=== PATIENT | male | born 1980 | race Caucasian/White ===

== ENCOUNTER → 2017-07-24 | Outpatient (CLI) | payer BC ==
[~2017-07-24] MED LIST: IBUP-1050 PO; OMEP40CA PO
[2017-07-24 14:35] LABS: ALBUMIN 4.1 gm/dl (3.4-5.0); ALT/SGPT 33 U/L (12-78); AST/SGOT 16 U/L (15-37); BLOOD UREA NITROGEN 12 mg/dl (7-18); CALCIUM 9.3 mg/dl (8.5-10.1); CARBON DIOXIDE 25 mmol/L (21-32); CREATININE 1.01 mg/dl (0.60-1.40); GLUCOSE 84 mg/dl (70-99); SODIUM 139 mmol/L (136-145)
[2017-07-24 14:45] LABS: ALKALINE PHOSPHATASE 86 U/L (45-117); TOTAL PROTEIN 7.6 gm/dl (6.4-8.2)
== END | disposition home or self-care (01) ==
LOC: C.LABBC 11:57
PROVIDERS: ATTEND Family Medicine Adult Medicine
DX: R19.7 Diarrhea, unspecified (principal)

== ENCOUNTER 2017-11-22 08:28 | Inpatient (IN) | payer BC ==
[~2017-11-22] VITALS: Ht 177.8 cm; Wt 93.7 kg
[2017-11-22] VITALS (9 sets, daily range): BP systolic 105–122; BP diastolic 62–71; PULSE 61–86; TEMP 36.1–36.9; O2SAT 92–97; Ht 177.8 cm; Wt 93.7 kg
[~2017-11-22 08:28] MED LIST changes: +CEFAZOLIN 2000MG IV PUSH 15 ML IV SCH; -IBUP-1050 PO; +LACTATED RINGER'S 1000ML 1,000 ML IV SCH; -OMEP40CA PO
[2017-11-22] MEDS ORDERED: LIDOCAINE HCL 2% 2 ML VIAL (20MG/ML) ONE (09:40)
[2017-11-22] MEDS ORDERED: GLYCOPYRROLATE INJ 0.2 MG/ML VIAL ONE ×2 (09:40→11:43)
[2017-11-22] MEDS ORDERED: ONDANSETRON INJ 2 MG/ML 2 ML VIAL ONE (09:40)
[2017-11-22] MEDS ORDERED: FENTANYL CITRATE INJ 50 MCG/1 ML 2 ML VIAL ONE ×3 (09:40→11:22)
[2017-11-22] MEDS ORDERED: NEOSTIGMINE METHYLSULFATE 5 MG/5 ML SYR ONE (09:40)
[2017-11-22] MEDS ORDERED: DEXAMETHASONE SOD INJ 4 MG/ML VIAL ONE (09:40)
[2017-11-22] MEDS ORDERED: PROPOFOL IV EMULSION 10 MG/ML 20 ML VIAL ONE ×3 (09:40→11:37)
[2017-11-22] MEDS ORDERED: MIDAZOLAM HCL 1 MG/ML 2ML VIAL ONE (09:40)
--- NOTE | 2017-11-22 09:50 | History & Physical Bridge Note ---
H&P Re-Evaluation Bridge Note: I have examined the patient, reviewed the History & Physical and in the interval since the performance of the History & Physical I have noted the following changes of clinical significance: No changes noted
[2017-11-22] MEDS ORDERED: HYDR-5688 PO (10:17)
--- NOTE | 2017-11-22 10:28 | Discharge Instructions ---
Discharge Instructions Date of Service Nov 22, 2017. Admission Reason for Admission: Hiatal Hernia, Chronic Gerd, Chronic Cholecystiti Discharge Discharge Diagnosis / Problem: laparoscopic cholecystectomy, hernia repair Discharge Goals Goal(s): Decrease discomfort Activity Recommendations Activity Limitations: as noted below Lifting Limitations: no more than 10 pounds Shower/Bathe: no limitations Driving or Machine Use: resume 3 days after discharge . Instructions / Follow-Up Instructions / Follow-Up Dr. Null in 2 weeks as planned, call [phone] if you have any questions Current Hospital Diet Patient's current hospital diet: Discharge Diet Recommended Diet: Full Liquid Diet Pending Studies Studies pending at discharge: no Medical Emergencies . Who to Call and When: Medical Emergencies: If at any time you feel your situation is an emergency, please call 911 immediately. . Non-Emergent Contact Non-Emergency issues call your: Surgeon Call Non-Emergent contact if: you have a fever, temperature is above 101.5, your pain is not controlled, wound has increased redness, wound has increased pain, you have any medication questions . "Provider Documentation" section prepared by Mahendra Umana. .
[2017-11-22] MEDS ORDERED: ATROPINE SULFATE 0.1 MG/ML 5ML SYR IV PRN (10:30)
[2017-11-22] MEDS ORDERED: ONDANSETRON INJ 2 MG/ML 2 ML VIAL IV PRN (10:30)
[2017-11-22] MEDS ORDERED: EpHEDrine SULFATE INJ 50 MG/ML AMP IV PRN (10:30)
[2017-11-22] MEDS ORDERED: FENTANYL CITRATE INJ 50 MCG/1 ML 2 ML VIAL IV PRN (10:30)
[2017-11-22] MEDS ORDERED: LABETALOL HCL IV 5 MG/ML 20ML IV PRN (10:30)
[2017-11-22] MEDS ORDERED: MEPERIDINE HCL 25 MG/ML CARP IV PRN (10:30)
[2017-11-22] MEDS ORDERED: HYDROmorphone INJ 1 MG/ML SYR IV PRN (10:30)
[2017-11-22] MEDS ORDERED: BUPIVACAINE/EPINEPHRINE 0.5% MPF 1:200,000 30 ML VIAL ONE (10:39)
[2017-11-22] MEDS ORDERED: ROCURONIUM BROMIDE 10 MG/ML 5 ML VIAL ONE ×2 (11:07→11:43)
[2017-11-22] MEDS ORDERED: HYDROmorphone INJ 2 MG/ML SYR/VIAL ONE (11:32)
[2017-11-22] MEDS ORDERED: PHENYLEPHRINE HCL INJ 10 MG/ML VIAL ONE (11:45)
--- NOTE | 2017-11-22 12:01 | [facility] Post Operative Brief Note ---
Immediate Operative Summary Operative Date Nov 22, 2017. Pre-Operative Diagnosis Chronic Cholecystitis, Hiatal Hernia Post-Operative Diagnosis Chronic Cholecystitis, Hiatal Hernia Procedure(s) Performed Laparoscopic Cholecystectomy, Laparoscopic Hiatal Hernia Repair with Gastropexy Surgeon Dr. Null Train Conductor Surgeon(s) NAEL Hobson/NAEL Leyva Estimated Blood Loss 15 ml Findings Consistent with Post-Op Diagnosis Specimens A. Gallbladder Anesthesia Type General Complication(s) none
[2017-11-22] MEDS ORDERED: ONDA4TAB65 PO (12:11)
[2017-11-22] MEDS ORDERED: MEPERIDINE HCL 50 MG/ML CARP ONE (12:14)
[2017-11-22] MEDS ORDERED: MoRPHine SULFATE 2 MG/ML CARP IV PRN ×2 (12:15)
[2017-11-22] MEDS ORDERED: HYDROCODONE/ACETAMIN 5/325MG TAB PO PRN (12:15)
--- NOTE | 2017-11-22 12:31 | [facility] Operative Report ---
Operative Report Operative Date Nov 22, 2017. Pre-Operative Diagnosis Chronic Cholecystitis, Hiatal Hernia Post-Operative Diagnosis Chronic Cholecystitis, Hiatal Hernia Procedure(s) Performed Laparoscopic Cholecystectomy, Laparoscopic Hiatal Hernia Repair with Gastropexy Surgeon Dr. Null Caustic Plant Worker Surgeon(s) NAEL Hobson/NAEL Leyva Estimated Blood Loss 15 ml Specimens A. Gallbladder Anesthesia Type General Complication(s) none Description of Procedure After informed consent was obtained the patient was brought to the operating room and placed in supine position. After successful intubation the abdomen was shaved and sterilely prepped and draped. Anesthesia placed an orogastric tube prior to initiating the procedure. I began by placing a supraumbilical incision with an 11 blade scalpel and carried this down through the soft tissue using electrocautery. The anterior rectus fascia was opened using electrocautery and 2 #0 Vicryl stay sutures were placed. Peritoneum was elevated with hemostats and incised under direct vision using a Metzenbaum scissor. A finger sweep was performed to take down any underlying adhesions and a 12 mm Jiang trocar was placed. The abdomen was insufflated that 20 mmHg. The laparoscope was inserted and the abdomen was examined in 360 degrees...a right upper quadrant 5 mm trocar was placed a right mid abdominal 5 mm trocar was placed a subxiphoid 5 mm trocar was placed a left upper quadrant 12 mm trocar was placed and eventually a left mid abdominal 5 mm trocar was placed all under direct vision. The patient was placed in reverse Trendelenburg position. I began with the cholecystectomy. We grasped the gallbladder and elevated superiorly and laterally. I used a [place] dissector to take down adhesions around the neck of the gallbladder. The cystic duct was readily identified. It was skeletonized. It was clipped twice proximally and once distally using a clip sales representative printing supplies and a scissor used to transect the duct. In similar fashion the cystic artery was skeletonized clipped and divided. The gallbladder was removed from the gallbladder fossa intact. It was placed into an Endo Catch bag and removed from the camera port site. Irrigation of the right upper quadrant was performed. There was adequate hemostasis and no evidence of a bile leak My attention then turned the hiatal hernia. I put on over gloves and attached the liver retractor to the side of the bed. We placed a [place] retractor through the right midabdominal trocar and elevated the left lobe of the liver and secured it to the fields. We were able to readily identify a moderate probably 5 cm hiatal hernia with some proximal stomach incarceration. We were able to grab the stomach and easily reduce it. I had anesthesia exchange the oral gastric tube for a 51 [place] bougie. I began by taking down the gastrohepatic ligament with the sono excision. I continued to come up the right crew and take down the hernia sac anteriorly. I then went over to the left crew and also took down hernia sac following the left crew up and around anteriorly to I had met what I done previously. Eventually I was able to completely take down the hernia sac in 360. Identification of the esophagus was obvious with the bougie in place. I was able to elevate the esophagus bougie and stomach and locate the left and right crew the diaphragm posteriorly. I used an Endo Stitch device with O Surgidac to primarily close the defect posteriorly. Once this was done I then closed the remainder of the defect anteriorly again using O Surgidac in simple interrupted fashion. It was relatively tension-free. I did perform a gastropexy by pexing the lesser curvature of the stomach to the right crew the diaphragm and the fundus to the left crew the diaphragm again using O Surgidac. We then removed the bougie. There was adequate hemostasis. No other gross abnormalities were identified. I irrigated the upper abdomen a final time. We removed all the trochars and desufflated the abdomen. The fascia of the camera port was closed using 0 Vicryl in a [id number] fashion. All the wounds were irrigated and closed using 4-0 Monocryl. Marcaine was injected around them for postoperative analgesia and skin glue used as a dressing. Patient was awaken extubated and transferred recovery in stable condition. My physician assistant baseball coach was present for the entire case. He helped prep the patient. He helped with running the camera as well as retraction throughout my dissection. Helped with wound closure and dressing placement at the end of the case. I attest to the content of the Intraoperative Record and any orders documented therein. Any exceptions are noted below.
--- NOTE | 2017-11-22 13:34 | Anesthesiology Progress Note ---
Anesthesia Post Op Note Date & Time Nov 22, 2017 at 13:34 Vital Signs Pain Intensity: 1 Vital Signs Past 12 Hours Date Time Temp Pulse Resp B/P (MAP) Pulse Ox O2 Delivery O2 Flow Rate FiO2 11/22/17 13:05 55 14 116/60 95 Nasal Cannula 2 11/22/17 12:50 36.8 64 12 117/69 98 Nasal Cannula 2 11/22/17 12:40 80 17 117/78 98 Nasal Cannula 3 11/22/17 12:30 80 16 122/67 97 Oxymask 10 11/22/17 12:20 99 16 133/76 96 Oxymask 10 11/22/17 12:13 36.6 115 16 136/85 95 Oxymask 10 11/22/17 08:42 36.1 67 16 113/68 (83) 96 Room Air Notes Mental Status: alert / awake / arousable, participated in evaluation Pt Amnestic to Procedure: Yes Nausea / Vomiting: adequately controlled Pain: adequately controlled Airway Patency, RR, SpO2: stable & adequate BP & HR: stable & adequate Hydration State: stable & adequate Anesthetic Complications: no major complications apparent
[2017-11-22] MEDS: LACTATED RINGER'S 1000ML 1,000 ML IV SCH ×2 (13:55→22:51)
[2017-11-22] MEDS ORDERED: IV FLUIDS COMPLETED PRN (15:30)
[2017-11-23 04:32] VITALS: BP 103/65; PULSE 76; TEMP 36.9; O2SAT 93
[2017-11-23 07:46] VITALS: BP 108/66; PULSE 66; TEMP 36.5; O2SAT 94
[2017-11-23 07:56] VITALS: O2SAT 94
[2017-11-23] MEDS: LACTATED RINGER'S 1000ML 1,000 ML IV SCH (09:08)
--- NOTE | 2017-11-23 10:05 | Surgery Progress Note ---
Surgery Progress Note Date of Service Nov 23, 2017. Subjective Post OP Day: 1 + feeling well, + pain controlled, + diet (liquids), No nausea Objective Vital Signs: Date Time Temp Pulse Resp B/P (MAP) Pulse Ox O2 Delivery O2 Flow Rate FiO2 11/23/17 07:56 94 Room Air 11/23/17 07:46 36.5 66 16 108/66 (80) 94 Room Air 11/23/17 07:17 Room Air 11/23/17 04:32 36.9 76 16 103/65 (78) 93 Room Air 11/22/17 23:23 Room Air 11/22/17 23:02 36.9 86 16 105/62 (76) 92 Room Air 11/22/17 20:07 36.3 75 17 108/69 (82) 93 Room Air 11/22/17 16:18 36.4 77 17 113/66 (82) 95 Nasal Cannula 1.0 11/22/17 15:35 36.5 84 17 114/66 (82) 95 Nasal Cannula 1.0 11/22/17 15:05 93 Room Air 11/22/17 14:15 73 16 121/68 (85) 93 11/22/17 13:45 36.5 61 16 122/71 (88) 95 Nasal Cannula 1.0 11/22/17 13:15 36.8 65 16 112/65 (81) 97 Nasal Cannula 2.0 11/22/17 13:15 Nasal Cannula 2.0 11/22/17 13:15 Nasal Cannula 2.0 11/22/17 13:05 55 14 116/60 95 Nasal Cannula 2 11/22/17 12:50 36.8 64 12 117/69 98 Nasal Cannula 2 11/22/17 12:40 80 17 117/78 98 Nasal Cannula 3 11/22/17 12:30 80 16 122/67 97 Oxymask 10 11/22/17 12:20 99 16 133/76 96 Oxymask 10 11/22/17 12:13 36.6 115 16 136/85 95 Oxymask 10 Abdomen: non distended, soft Assessment & Plan Laparoscopic Cholecystectomy, Laparoscopic Hiatal Hernia Repair with Gastropexy doing well post op keep on full liquids seen with Dr. Null ok for discharge
[2017-11-23 10:10] VITALS: BP 108/66; PULSE 66; TEMP 36.5; O2SAT 94
--- NOTE | 2017-11-23 15:23 | Discharge Summary ---
Discharge Summary Date of Service Nov 23, 2017. Admission Date/Reason Nov 22, 2017 at 12:10 Hiatal Hernia, Chronic Gerd, Chronic Cholecystiti. Discharge Date/Disposition Nov 23, 2017 Home Diagnosis Principal Diagnosis: Chronic cholecystitis Hiatal Hernia Procedure(s) Performed Laparoscopic Cholecystectomy, Laparoscopic Hiatal Hernia Repair with Gastropexy Medication Reconciliation New Medications: Hydrocodone/Acetaminophen 5MG/325MG ([place] 5MG/325MG) Tab 1-2 TABLET PO Q4H PRN for Pain, #24 TAB Ondansetron Hcl (Zofran) 4 Mg Tab 4 MG PO PRN, #10 TAB Referrals Follow up Referrals: Surgery Referral - Within 1-2 Weeks with Ankit uNll D.O. Admission Physical Exam As per Admitting History & Physical. Hospital Course 37 y/o male with chronic cholecystitis and hiatal hernia taken to the operating room laparoscopic cholecystectomy and laparoscopic hiatal hernia repair with gastropexy. He was transferred to the surgical floor for overnight observation. In the morning he was tolerating full liquid diet and oral analgesics. His abdomen was benign. He was stable for discharge. Discharge Instructions Please refer to the electronic Patient Visit Report (Discharge Instructions) for additional information.
== END 2017-11-23 12:10 | disposition home or self-care (01) | DRG 328 ==
LOC: C.ACU 08:28 → C.MSW 12:10 → ENRESERV 12:39
PROVIDERS: ADMIT Surgery; ATTEND Surgery
PROC: 0DS64ZZ Reposition Stomach, Percutaneous Endoscopic Approach (ICD-10-PCS; principal; 2017-11-22 10:00)
PROC: 0FT44ZZ Resection of Gallbladder, Percutaneous Endoscopic Approach (ICD-10-PCS; principal; 2017-11-22 10:00)
PROC: 0BQT4ZZ Repair Diaphragm, Percutaneous Endoscopic Approach (ICD-10-PCS; principal; 2017-11-22 10:00)
DX: K44.9 Diaphragmatic hernia without obstruction or gangrene (principal); K81.1 Chronic cholecystitis; K21.9 Gastro-esophageal reflux disease without esophagitis

== ENCOUNTER 2018-09-20 06:53 | Observation (INO) ==
[2018-09-20] MEDS ORDERED: SODIUM CHLORIDE 0.9% 1000ML 1,000 ML IV ONE (07:27)
[2018-09-20 07:35] LABS: Basophils # (auto) 0.02 K/uL (0-0.2); Basophils % (auto) 0.4 %; Eosinophils # (auto) 0.13 K/uL (0-0.5); Eosinophils % (auto) 2.6 %; Hemoglobin 15.3 g/dL (14.0-18.0); Immature Granulocytes # (auto) 0.01 K/uL (0.00-0.02); Immature Granulocytes % (auto) 0.2 %; Lymphocytes # (auto) 1.32 K/uL (1.2-3.4); Lymphocytes % (auto) 26.2 %; Mean Corpuscular Hgb Conc 35.6 g/dL (32-36); Mean Corpuscular Volume 84.5 fL (80-100); Mean Platelet Volume 10.3 fL (7.4-10.4); Monocytes # (auto) 0.37 K/uL (0.11-0.59); Monocytes % (auto) 7.4 %; Neutrophils # (auto) 3.18 K/uL (1.4-6.5); Neutrophils % (auto) 63.2 %; Platelet Count 170 K/uL (130-400); RDW Coefficient of Variation 11.9 % (11.5-14.5); RDW Standard Deviation 36.5 fL (36.4-46.3); Red Blood Count 5.09 M/uL (4.7-6.1); White Blood Count 5.03 K/uL (4.8-10.8)
[2018-09-20 07:51] LABS: Albumin Level 4.1 gm/dl (3.4-5.0); BUN Creatinine Ratio 18.1 (10-20); Calcium 9.6 mg/dl (8.5-10.1); Creatinine Clr Calc Pharmacy 107.9 ml/min; Est GFR (African American) 100.7; Est GFR (Non-African American) 86.9; Potassium 3.8 mmol/L (3.5-5.1)
[2018-09-20 07:54] LABS: Albumin Globulin Ratio 1.2 (0.9-2); Bilirubin,Total 0.7 mg/dl (0.2-1); Globulin 3.3 gm/dl (2.5-4.0); Total Protein 7.4 gm/dl (6.4-8.2)
--- NOTE | 2018-09-20 08:19 | CT Scan Report ---
ABDOMEN AND PELVIS CT WITHOUT CONTRAST CT DOSE: 610.59 mGy.cm HISTORY: Acute right lower quadrant abdominal pain RLQ TECHNIQUE: Multiaxial CT images of the abdomen and pelvis were performed without contrast. A dose lo wering technique was utilized adhering to the principles of ALARA. COMPARISON STUDY: Chest CT 05/06/2018, right upper quadrant abdominal ultrasound 08/21/2015. FINDINGS: Mild dependent subsegmental bibasilar atelectasis. No pneumatosis or pneumoperitoneum. Imaged inferio r cardiac chambers appear unremarkable. Prior cholecystectomy. Spleen, liver, pancreas and adrenal gl ands appear unremarkable. Kidneys, ureters and urinary bladder are within normal limits. Prostate rebekah ears unremarkable. Aorta and IVC are within normal limits. There is no adenopathy. Small hiatal hernia. No bowel obstruction. Fluid-filled appendix is mildly dilated measuring up to 9 mm. Mild periappendiceal inflammatory stranding without evidence of rupture or organized fluid collec tion. Reactive lymph nodes of the right lower quadrant mesentery measure up to 6 mm. Soft tissues are unremarkable. The bones appear to be intact. Mild disc space narrowing with small posterior disc ost eophyte complex formation at L5-S1. IMPRESSION: 1. Findings compatible with acute uncomplicated appendicitis. No evidence of perforation or drainable fluid collection. 2. Mildly prominent reactive lymph nodes of the right lower quadrant mesentery. 3. No bowel obstruction. 4. Cholecystectomy. 5. Small hiatal hernia. Electronically signed by: Yash Dior M.D. 09/20/2018 8:18 AM
[2018-09-20] MEDS ORDERED: cefOXitin 2,000 MG/60 ML BAG IV STA (08:39)
--- NOTE | 2018-09-20 09:25 | History & Physical Report ---
Date of Service September 20, 2018 Assessment & Plan (1) Acute appendicitis: Will plan for laparoscopic appendectomy later this morning by Dr. García. Mefoxin was given in the ED. History of Present Illness Primary Care Provider: Griselda Peter MD 37 y/o male with RLQ pain began yesterday and increasing overnight. Went to work this morning, left to come to the ED. No N/V, no fevers or chills. Had lap romel, HH repair about a year ago. Allergies Allergy/AdvReac Type Severity Reaction Status Date / Time No Known Allergies Allergy Unverified 09/20/18 07:17 Home Medications Home Medications Medication Instructions Recorded Confirmed Type ibuprofen 600 mg PO QID PRN 09/20/18 09/20/18 History Past Med/Surg History Surgical History History of inguinal hernia repair History of laparoscopic cholecystectomy History of repair of hiatal hernia History of vasectomy Family History Grandfather (Paternal) Alcoholic cirrhosis Grandfather (Maternal) Murmur Diabetes Father Prostate cancer Grandmother (Maternal) Alzheimer disease Sister Systemic lupus erythematosus Social History Preferred Language: [place] Communication Ability: Effective Community Associate Required: No Beliefs That Will Affect Care: None marital status: Current Living Situation: Spouse current occupational status: employed current occupation: [employer] Other Information That Helps Us Care for You: No Feels Safe at Home: Yes Safety Concerns: Feels Safe At This Time Smoking Status: Never smoker Do You Dip or Chew Tobacco: No Second Hand Exposure: No Tobacco Cessation Education Requested by Patient: No Hx Alcohol Use: Yes Alcohol type: beer Hx Substance Use: No Review of Systems Constitutional: no fever, no chills and no anorexia Gastrointestinal: + abdominal pain; no nausea and no vomiting Physical Exam Constitutional: WD/WN, vitals as above Respiratory: normal respiratory effort, lungs clear to auscultation Cardiovascular: RRR, no murmur, no edema Gastrointestinal (Abdomen): Inspection/Auscultation: abdomen not distended Percussion/Palpation: + abdomen tender (RLQ), + guarding and abdomen soft Skin: no rashes, warm and dry Results & Data Vital Signs (Past 12 Hours) Vital Signs Temp Pulse Pulse Resp BP BP Pulse Ox 09/20/18 08:09 65 18 106/70 99 09/20/18 07:42 95 09/20/18 06:59 36.5 C 63 18 117/77 99 Diagnostic Findings ABDOMEN AND PELVIS CT WITHOUT CONTRAST CT DOSE: 610.59 mGy.cm HISTORY: Acute right lower quadrant abdominal pain RLQ TECHNIQUE: Multiaxial CT images of the abdomen and pelvis were performed without contrast. A dose lowering technique was utilized adhering to the principles of ALARA. COMPARISON STUDY: Chest CT 05/06/2018, right upper quadrant abdominal ultrasound 08/21/2015. FINDINGS: Mild dependent subsegmental bibasilar atelectasis. No pneumatosis or pneumoperitoneum. Imaged inferior cardiac chambers appear unremarkable. Prior cholecystectomy. Spleen, liver, pancreas and adrenal glands appear unremarkable. Kidneys, ureters and urinary bladder are within normal limits. Prostate appears unremarkable. Aorta and IVC are within normal limits. There is no adenopathy. Small hiatal hernia. No bowel obstruction. Fluid-filled appendix is mildly dilated measuring up to 9 mm. Mild periappendiceal inflammatory stranding without evidence of rupture or organized fluid collection. Reactive lymph nodes of the right lower quadrant mesentery measure up to 6 mm. Soft tissues are unremarkable. The bones appear to be intact. Mild disc space narrowing with small posterior disc osteophyte complex formation at L5-S1. IMPRESSION: 1. Findings compatible with acute uncomplicated appendicitis. No evidence of perforation or drainable fluid collection. 2. Mildly prominent reactive lymph nodes of the right lower quadrant mesentery. 3. No bowel obstruction. 4. Cholecystectomy. 5. Small hiatal hernia. Electronically signed by: Yash Dior M.D. 09/20/2018 8:18 AM Supervising Physician Co-Signing Physician Notes Pnt seen and examined, labs and imaging reviewed, agree with above. 37 y/[address] male with CT proven acute appendicitis, plan for laparoscopic appendectomy. Risks discussed to include but not limited to bleeding, infection, abscess, damage to surrounding structures, normal appendix, need for future or more extensive surgery, open surgery, and risks of anesthesia. Abx pre op. (1) Acute appendicitis Acute appendicitis type: with localized peritonitis Appendicitis abscess presence: without abscess Appendicitis gangrene presence: without gangrene Appendicitis perforation presence: without perforation Qualified Code(s): K35.30 - Acute appendicitis with localized peritonitis, without perforation or gangrene
[2018-09-20] MEDS ORDERED: LACTATED RINGER'S 1,000 ML IV SCH ×2 (09:30→16:54)
[2018-09-20 10:40] LABS: Appearance Urine Clear (Clear); Bilirubin Urine Negative (Negative); Blood Urine Negative (Negative); Color Urine Yellow; Glucose Urine UA Negative (Negative); Ketones Urine Negative (Negative); Leukocyte Esterase Urine Negative (Negative); Nitrite Urine Negative (Negative); Protein Urine Negative (Negative); Specific Gravity Urine 1.013 (1.000-1.030); Urobilinogen Urine Negative (Negative); pH Urine 7.5 (4.5-7.5)
--- NOTE | 2018-09-20 12:40 | Anesthesiology Consultation ---
Date of Service September 20, 2018 Assessment & Plan (1) Encounter for pre-operative examination: Chart Review Chart Review: Acceptable Risk for Surgery and Patient NOT seen in Pre Admission Testing Consults Requested none ASA ASA2 Proposed Anesthesia Anesthesia Type: General Risk / Benefits Reviewed With: PT / POA / Parent / Guardian, Accepts Plan and In formed Consent Obtained History Surgery Operation Date: 09/20/18 09:50 Proposed Procedures p Laparoscopic Appendectomy - Dariusz García, , FACS Height/Weight Height: 5 ft 9 in Weight: 97.6 kg Allergies Allergy/AdvReac Type Severity Reaction Status Date / Time No Known Allergies Allergy Unverified 09/20/18 07:17 Medications Home Medications Medication Instructions Recorded Confirmed Last Taken ibuprofen 600 mg PO QID PRN 09/20/18 09/20/18 09/20/18 05:30 Active Medications Generic Name Dose Route Start Last Admin Trade Name Freq PRN Reason Stop Dose Admin Lactated Ringer's 1,000 mls @ 125 mls/hr 09/20/18 09:30 09/20/18 10:07 Lr IV 10/20/18 09:29 125 mls/hr .Q8H ELIZABETH Administration NPO Date Last Intake of Fluids: 09/20/18 Time Last Intake of Fluids: 05:30 Date Last Intake of Solids: 09/19/18 Time Last Intake of Solids: 18:30 Exercise / Class Metabolic Activity II 4-5 Yardwork/Stairs/Walk up hill Negative for chest pain or shortness of breath. Past Family History Family History Grandfather (Paternal) Alcoholic cirrhosis Grandfather (Maternal) Murmur Diabetes Father Prostate cancer Grandmother (Maternal) Alzheimer disease Sister Systemic lupus erythematosus Past Surgical History Surgical History History of inguinal hernia repair History of laparoscopic cholecystectomy History of repair of hiatal hernia History of vasectomy Past Anesthesia History No Hx of Anesthesia Complications History of PONV No Hx of PONV and Hx of Motion Sickness Social History Smoking Status: Never smoker Do You Dip or Chew Tobacco: No Hx Alcohol Use: Yes Alcohol type: beer alcohol intake frequency: a few times a month Alcohol Intake Frequency Comment: 3 drinks a month Hx Substance Use: No substance use type: does not use Review of Systems Patient denies active symptoms of GERD. pt reports that he dislocated his cricoid cartilage and bruised his vocal cords last week Physical Exam Vital Signs Last Vital Signs Temp 36.5 C 09/20/18 06:59 Pulse 60 09/20/18 12:00 Resp 14 09/20/18 12:00 BP 108/64 09/20/18 12:00 Pulse Ox 97 09/20/18 12:00 Constitutional + obese ENMT Mouth: no TMJ abnormality and oral opening not small Thyromental Distance: > or= 3.5 Finger Breadths Neck normal visual inspection, + thick neck and + facial hair; neck extension not limited Respiratory normal respiratory effort Auscultation: lungs clear to auscultation bilaterally Cardiovascular Rate/Rhythm: regular rate and regular rhythm Heart Sounds: no murmur Neurologic moves all extremities Motor/Sensory: no sensory deficit Psychiatric Orientation: alert and oriented x 3 Testing Laboratory Results 09/20/18 07:18 09/20/18 07:18 09/20/18 10:30 Urine Color Yellow Urine Appearance Clear Urine pH 7.5 Ur Specific [place] 1.013 Urine Protein Negative Urine Glucose (UA) Negative Urine Ketones Negative Urine Nitrite Negative Ur Leukocyte Esterase Negative
[2018-09-20] MEDS ORDERED: fentaNYL citrate 100 MCG/2 ML VIAL IV PRN (13:02)
[2018-09-20] MEDS ORDERED: ATROPINE SULFATE 0.1 MG/ML 10ML SYR IV PRN (13:02)
[2018-09-20] MEDS ORDERED: HYDROmorphone INJ 1 MG/ML SYRINGE IV PRN (13:02)
[2018-09-20] MEDS ORDERED: ePHEDrine sulfate 50 MG/ML AMP IV PRN (13:02)
[2018-09-20] MEDS ORDERED: ONDANSETRON INJ 2 MG/ML 2 ML VIAL IV PRN ×2 (13:02→16:54)
[2018-09-20] MEDS ORDERED: PROMETHAZINE HCL 12.5 MG in SODIUM CHLORIDE 0.9% 50 ML IV PRN (13:02)
[2018-09-20] MEDS ORDERED: BUPIVACAINE 0.5 % 5 MG/1 ML MPF 30ML VIAL ONE (13:16)
[2018-09-20] MEDS ORDERED: DEXAMETHASONE SOD INJ 4 MG/ML VIAL ONE (13:22)
[2018-09-20] MEDS ORDERED: PROPOFOL IV EMULSION 10 MG/ML 20 ML VIAL IV ONE (13:22)
[2018-09-20] MEDS ORDERED: LIDOCAINE HCL 2% 2 ML VIAL/AMP(20MG/ML) INFIL ONE (13:22)
[2018-09-20] MEDS ORDERED: ROCURONIUM BROMIDE 10 MG/ML 5 ML VIAL ONE (13:22)
[2018-09-20] MEDS ORDERED: MIDAZOLAM HCL 1 MG/ML 2ML VIAL ONE (13:22)
[2018-09-20] MEDS ORDERED: ONDANSETRON INJ 2 MG/ML 2 ML VIAL ONE (13:22)
[2018-09-20] MEDS ORDERED: HYDROmorphone INJ 2 MG/ML SYR/VIAL ONE (13:23)
[2018-09-20] MEDS ORDERED: GLYCOPYRROLATE 0.2 MG/ML VIAL ONE (14:32)
[2018-09-20] MEDS ORDERED: NEOSTIGMINE METHYLSULFATE 5 MG/5 ML SYR ONE (14:32)
--- NOTE | 2018-09-20 15:12 | Operative Report ---
Post Operative Report Pre & Post Diagnosis Operation Date: 09/20/18 09:50 Pre-Op Diagnosis: Acute Appendicitis Post-Op Diagnosis: Acute Appendicitis, intra-abdominal adhesions, Meckel's diverticulum Procedure Operation Date: 09/20/18 09:50 Actual Procedures p Laparoscopic Appendectomy, laparoscopic lysis of adhesions, laparoscopic Meckel's diverticulectomy- Dariusz García DO, HAYDEE Surgeon Dariusz García DO, HAYDEE Radio Frequency Engineer Mahendra Umana Estimated Blood Loss 4 Findings Consistent with Post-Op Diagnosis Some moderate adhesions from prior surgery, also some adhesions in the right lower quadrant with some clips evident, possibly consistent with a prior hernia repair. Some omental adhesions taken down to expose the cecum. Appendix not perforated and mildly inflamed, uncomplicated appendectomy performed. Small bowel run from terminal ileum proximally, mildly inflamed Meckel's diverticulum identified with narrow mouth. Stapled Meckel's diverticulectomy performed. Specimens Appendix Meckel's diverticulum Anesthesia Type General Complications none Disposition Accompanied Patient To Recovery: No Disposition: Recovery Room Indications 37-year-old male with 24 hours of abdominal pain and CT proven acute appendicitis without evidence of perforation, plan for laparoscopic appendectomy. The risks of the procedure were discussed, all questions were answered, and the patient agreed to proceed with surgery as planned. Description of Procedure The patient was properly identified, consented, and taken to the operating room where he was placed in the supine position. General endotracheal anesthesia was induced. SCDs and a safety belt were placed. Preoperative antibiotics were administered. A Scott catheter was not placed. The patient's abdomen was prepped and draped in the standard sterile fashion. Surgical timeout was performed and all parties were in agreement that this was the correct patient and procedure to be performed and we continued as planned. A curvilinear infraumbilical incision was made with electrocautery and deepened down to the fascia with blunt dissection. The base of the umbilicus was grasped with a Usman and elevated towards the ceiling. An incision was made in the midline fascia with a knife and entry into the peritoneum was confirmed. Stay suture of 0 Vicryl was placed and a Jiang trocar was inserted. The abdomen was insufflated with carbon dioxide which the patient tolerated without incident. The laparoscope was inserted and no damage from initial trocar placement was noted, no gross abnormalities were noted within the 4 quadrants the abdomen. 5 mm ports were then placed in the left lower quadrant with care not to damage the epigastric vessels, and in the suprapubic midline with care not to damage the bladder. The patient was placed in Trendelenburg position and rotated towards the left. There was some omental adhesions to the anterior abdominal wall in the right lower quadrant. There is a few clips in this area, which may represent a prior inguinal hernia repair though this is uncertain. These were taken down with blunt dissection and with the harmonic scalpel. The small bowel was swept away from the right lower quadrant. The cecum was grasped with an atraumatic grasper exposing the appendix. The appendix was mildly inflamed and there was no evidence of perforation. There was no fluid in the pelvis. A window was created between the base of the appendix and the mesoappendix. A harris loaded endoscopic stapler was then used to divide the appendix at its base. The harmonic scalpel was then used to divide the mesoappendix. Hemostasis was good. The appendix was placed in an Endo Catch bag and removed through the umbilical port site. The right lower quadrant and pelvis was irrigated and hemostasis was found to be good. I then explored the bowel starting at the terminal ileum and working proximally. Approximately 2 to 3 feet from the terminal ileum there were a few adhesions and it was noted that there was a fairly narrow mouth Meckel's diverticulum without evidence of significant inflammation or perforation. An additional 5 mm port was placed in the right upper quadrant through an old incision to assist with retraction. Filmy adhesions were taken down with scissors. There was an area where the diverticulum was densely adherent to a piece of small bowel, and this was divided with a 30 mm harris loaded endoscopic stapler. The Meckel's diverticulum was then resected at its base using a harris loaded endoscopic stapler with care not to narrow the bowel significantly. The Meckel's diverticulum was placed in an Endo Catch bag and removed through the umbilical port site. The appendiceal, and 2 Meckel's diverticulum staple lines were examined and appeared to be hemostatic with no leak. Remainder of the abdomen was explored and no other abnormalities were noted. 5 mm trochars were removed under direct visualization and the abdomen was allowed to collapse. The umbilical port site fascia was closed with 0 Vicryl suture. The wound was irrigated, and the skin of all ports was closed with 4-0 Monocryl subcuticular sutures. Dermabond was placed over the wounds. The patient was extubated in the operating room and taken to the PACU where he recovered without apparent incident. All sponge, instrument and needle counts were correct at the conclusion of the procedure. The patient tolerated the procedure well. The physician's curatorial assistant was present and scrubbed for the entire the case. He was critical in positioning the patient, prepping and draping, retraction and exposure, driving the laparoscope, removal of the appendix and Meckel's diverticulum, closure of the incisions, and placement of the dressing. I attest to the content of the Intraoperative Record and any orders documented therein. Any exceptions are noted below.
--- NOTE | 2018-09-20 15:20 | Emergency Department Note ---
Entered by Aundrea Gatica acting as a scribe for Bert Cash MD ED Provider Note CHIEF COMPLAINT: Abdominal pain HISTORY OF PRESENT ILLNESS: The patient is a 37 year old male who presents to the Emergency Room with complaints of a persistent abdominal pain that began at 1700 last night. The patient reports that the pain is located in his right lower quadrant and that it does not radiate anywhere. He explains that the pain is exacerbated with movement and relieved at rest. He states that he did [id number] mg of ibuprofen this morning around 0530 and that it did not alleviate his symptoms. He denies any similar pain in the past. He rates his pain around a 5/10 with movement. He denies eating this morning. He reports that he has had a cholecystectomy as well as two hernia repairs. The patient denies LOC, headache, fevers, chills, visual changes, neck pain, chest pain, breathing difficulties, nausea, vomiting, diarrhea, melena, hematochezia, urinary symptoms, lymphadenopathy, rash, sore throat, coughs, or other complaints. REVIEW OF SYSTEMS: See HPI for pertinent positives and negatives. A total of ten systems were reviewed and were otherwise negative. PMHx/PSHx: History of a cholecystectomy History of hiatal hernia repair History of inguinal hernia repair History of vasectomy SOCIAL HISTORY: Patient lives at home with family. Never smoker. PHYSICAL EXAM: GENERAL: Awake, alert, uncomfortable appearing, in no distress HENT: Normocephalic, atraumatic. Oropharynx unremarkable. EYES: PERRL. Normal conjunctiva. Sclera non-icteric. NECK: Inspection normal. Non-tender. Supple. No nuchal rigidity. FROM. No masses. RESPIRATORY: Clear to auscultation. No wheezes. No rales. Normal respiratory effort. CARDIAC: Normal rate. Normal rhythm. No murmurs. No rubs. Extremities warm and well perfused. Pulses equal. No JVD. GI: Soft, non-distended. Tenderness to percussion in the RLQ. No rebound or guarding. No masses. RECTAL: Deferred. MUSCULOSKELETAL: Atraumatic. Chest examination reveals no tenderness. The back is symmetrical on inspection without obvious abnormality. There is no CVA tenderness to palpation. No joint edema. LOWER EXTREMITIES: Calves are equal size bilaterally and non-tender. No edema. No discoloration. NEURO: Normal sensorium. No sensory or motor deficits noted. SKIN: No rash or jaundice noted. EMERGENCY DEPARTMENT COURSE: 725: The patient was evaluated in room B7, and a complete history and physical examination were performed. 830: I updated the patient on his results. 835: I reviewed the patient's case with Mahendra Umana PA-C � [facility] General Surgery. He, in conjunction with Dr. García, will evaluate the patient for further management. MEDICAL DECISION MAKING: Triage Nursing notes reviewed and agree them. The patient's history was concerning for abdominal pain. Differential diagnosis: Etiologies such as appendicitis, diverticulitis, PUD, biliary pathology, UTI, pancreatitis, obstruction, mesenteric ischemia, aortic pathology, infections, inflammatory bowel disease, renal colic, as well as others were entertained. Physical examination findings: As above. Tender in the right lower quadrant. ER treatment provided: N.p.o. Normal saline 1 L bolus IV Mefoxin Diagnostics interpreted by me: The labs revealed an unremarkable CBC and chemistry panel. Imaging studies: CT scan of the abdomen pelvis was performed. This was consistent with acute appendicitis. No perforation. Consultation: A consultation was placed with the general surgery team. The case was discussed and diagnostics were reviewed. The patient was evaluated in the ER for further treatment. IMPRESSION: Acute appendicitis PLAN: Being evaluated by surgeon The scribe's documentation has been prepared under my direction and personally reviewed by me in its entirety. I confirm that the note above accurately refl ects all work, treatment, procedures, and medical decision making performed by me. 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 Beliefs That Will Affect Care: None marital status: Current Living Situation: Spouse current occupational status: employed current occupation: [employer] Other Information That Helps Us Care for You: No Feels Safe at Home: Yes Safety Concerns: Feels Safe At This Time Smoking Status: Never smoker Do You Dip or Chew Tobacco: No Second Hand Exp osure: No Tobacco Cessation Education Requested by Patient: No Hx Alcohol Use: Yes Alcohol type: beer Hx Substance Use: No Results & Data Vital Signs Vital Signs - 24 hr 09/20/18 06:59 09/20/18 07:42 09/20/18 08:09 Temperature 36.5 C Temperature Source Oral Sepsis Recent Fever Within 48 Hours No Sepsis Action Taken by Nursing No Action Required Pulse Rate 63 Pulse Rate [Apical] 65 Pulse Rate [Right Finger] Pulse Rate from SpO2 Sensor Pulse Rhythm [Apical] Regular Pulse Rhythm [Right Finger] Pulse Strength [Right Finger] Respiratory Rate 18 18 Respiratory Effort / Characteristics Non-Labored Spontaneous Respiratory Depth Normal Normal Respiratory Pattern Blood Pressure 117/77 Blood Pressure [Left Arm] 106/70 Blood Pressure Mean 90 Blood Pressure Mean [Left Arm] 82 Blood Pressure Position Sitting Blood Pressure Position [Left Arm] Pulse Oximetry 99 95 99 Oxygen Delivery Method Room Air Room Air Room Air 09/20/18 09:25 09/20/18 10:31 09/20/18 11:04 Temperature Temperature Source Sepsis Recent Fever Within 48 Hours Sepsis Action Taken by Nursing Pulse Rate Pulse Rate [Apical] 75 71 68 Pulse Rate [Right Finger] Pulse Rate from SpO2 Sensor Pulse Rhythm [Apical] Pulse Rhythm [Right Finger] Pulse Strength [Right Finger] Respiratory Rate 18 20 16 Respiratory Effort / Characteristics Non-Labored Spontaneous Respiratory Depth Normal Normal Normal Respiratory Pattern Regular Blood Pressure Blood Pressure [Left Arm] 120/80 121/81 109/80 Blood Pressure Mean Blood Pressure Mean [Left Arm] 93 94 89 Blood Pressure Position Blood Pressure Position [Left Arm] Pulse Oximetry 96 99 98 Oxygen Delivery Method Room Air Room Air Room Air 09/20/18 11:30 09/20/18 12:00 09/20/18 12:44 Temperature 36.6 C Temperature Source Oral Sepsis Recent Fever Within 48 Hours Sepsis Action Taken by Nursing Pulse Rate 70 60 Pulse Rate [Apical] Pulse Rate [Right Finger] 64 Pulse Rate from SpO2 Sensor 70 61 Pulse Rhythm [Apical] Pulse Rhythm [Right Finger] Regular Pulse Strength [Right Finger] Normal Respiratory Rate 22 14 18 Respiratory Effort / Characteristics Non-Labored Spontaneous Respiratory Depth Normal Respiratory Pattern Regular Blood Pressure 108/65 108/64 Blood Pressure [Left Arm] 114/76 Blood Pressure Mean 79 78 Blood Pressure Mean [Left Arm] 88 Blood Pressure Position Blood Pressure Position [Left Arm] Sitting Pulse Oximetry 97 97 96 Oxygen Delivery Method Room Air Room Air Room Air Home Medications Current Medication List: was personally reviewed by me Laboratory Data Attestation: I reviewed the patient's lab results. Result diagrams: 09/20/18 07:18 09/20/18 07:18 Lab Results 09/20/18 09/20/18 09/20/18 Range/Units 07:18 07:18 10:30 WBC 5.03 (4.8-10.8) K/uL RBC 5.09 (4.7-6.1) M/uL Hgb 15.3 (14.0-18.0) g/dL Hct 43.0 (42-52) % MCV 84.5 (80-100) fL MCH 30.1 (25-34) pg MCHC 35.6 (32-36) g/dL RDW Std Deviation 36.5 (36.4-46.3) fL RDW Coeff of Mine 11.9 (11.5-14.5) % Plt Count 170 (130-400) K/uL MPV 10.3 (7.4-10.4) fL Immature Gran % (Auto) 0.2 % Neut % (Auto) 63.2 % Lymph % (Auto) 26.2 % [place] % (Auto) 7.4 % Eos % (Auto) 2.6 % Baso % (Auto) 0.4 % Immature Gran # (Auto) 0.01 (0.00-0.02) K/uL Neut # (Auto) 3.18 (1.4-6.5) K/uL Lymph # (Auto) 1.32 (1.2-3.4) K/uL [place] # (Auto) 0.37 (0.11-0.59) K/uL Eos # (Auto) 0.13 (0-0.5) K/uL Baso # (Auto) 0.02 (0-0.2) K/uL Sodium 141 (136-145) mmol/L Potassium 3.8 (3.5-5.1) mmol/L Chloride 107 (98-107) mmol/L Carbon Dioxide 28 (21-32) mmol/L Anion Gap 6.0 (3-11) BUN 20 H (7-18) mg/dl Creatinine 1.09 (0.6-1.4) mg/dl Est Cr Clr Drug Dosing 107.9 ml/min Est GFR ( Amer) 100.7 Est GFR (Non-Af Amer) 86.9 BUN/Creatinine Ratio 18.1 (10-20) Glucose 92 (70-99) mg/dl Calcium 9.6 (8.5-10.1) mg/dl Total Bilirubin 0.7 (0.2-1) mg/dl AST 15 (15-37) U/L ALT 29 (12-78) U/L Alkaline Phosphatase 75 (45-117) U/L Total Protein 7.4 (6.4-8.2) gm/dl Albumin 4.1 (3.4-5.0) gm/dl Globulin 3.3 (2.5-4.0) gm/dl Albumin/Globulin Ratio 1.2 (0.9-2) Lipase 247 (73-393) U/L Urine Color Yellow Urine Appearance Clear (Clear) Urine pH 7.5 (4.5-7.5) Ur Specific [place] 1.013 (1.000-1.030) Urine Protein Negative (Negative) Urine Glucose (UA) Negative (Negative) Urine Ketones Negative (Negative) Urine Blood Negative (Negative) Urine Nitrite Negative (Negative) Urine Bilirubin Negative (Negative) Urine Urobilinogen Negative (Negative) Ur Leukocyte Esterase Negative (Negative) Administered Medications Lactated Ringer's (Lr) 1,000 mls @ 125 mls/hr IV .Q8H [facility] Stop: 10/20/18 09:29 Last Admin: 09/20/18 10:07 Dose: 125 mls/hr Documented by: [id number] Discontinued Medications Bupivacaine HCl (Marcaine 0.5% Mpf) Confirm Administered Dose 30 ml .ROUTE .STK- MED ONE Stop: 09/20/18 13:17 Last Admin: 09/20/18 15:05 Dose: 24 ml Documented by: [id number] Sodium Chloride (Nss 1000ml) 1,000 mls @ 999 mls/hr IV .Q1H1M ONE Stop: 09/20/18 08:27 Last Infusion: 09/20/18 08:58 Dose: 0 mls/hr Documented by: [id number] Admin: 09/20/18 07:53 Dose: 999 mls/hr Documented by: [id number] Cefoxitin Sodium (Mefoxin) 2,000 mg in 60 mls @ 100 mls/hr IV NOW STA Stop: 09/20/18 09:14 Last Infusion: 09/20/18 09:57 Dose: 0 mls/hr Documented by: [id number] Admin: 09/20/18 09:21 Dose: 100 mls/hr Documented by: [id number] Imaging Data Radiologist's Impression: Radiology results as stated below per my review and the radiologist's interpretation: ABDOMEN AND PELVIS CT WITHOUT CONTRAST CT DOSE: 610.59 mGy.cm HISTORY: Acute right lower quadrant abdominal pain RLQ TECHNIQUE: Multiaxial CT images of the abdomen and pelvis were performed without contrast. A dose lowering technique was utilized adhering to the principles of ALARA. COMPARISON STUDY: Chest CT 05/06/2018, right upper quadrant abdominal ultrasound 08/21/2015. FINDINGS: Mild dependent subsegmental bibasilar atelectasis. No pneumatosis or pneumoperitoneum. Imaged inferior cardiac chambers appear unremarkable. Prior cholecystectomy. Spleen, liver, pancreas and adrenal glands appear unremarkable. Kidneys, ureters and urinary bladder are within normal limits. Prostate appears unremarkable. Aorta and IVC are within normal limits. There is no adenopathy. Small hiatal hernia. No bowel obstruction. Fluid-filled appendix is mildly dilated measuring up to 9 mm. Mild periappendiceal inflammatory stranding without evidence of rupture or organized fluid collection. Reactive lymph nodes of the right lower quadrant mesentery measure up to 6 mm. Soft tissues are unremarkable. The bones appear to be intact. Mild disc space narrowing with small posterior disc osteophyte complex formation at L5-S1. IMPRESSION: 1. Findings compatible with acute uncomplicated appendicitis. No evidence of perforation or drainable fluid collection. 2. Mildly prominent reactive lymph nodes of the right lower quadrant mesentery. 3. No bowel obstruction. 4. Cholecystectomy. 5. Small hiatal hernia. Electronically signed by: Yash Dior M.D. 09/20/2018 8:18 AM Blood Pressure Blood Pressure Findings: Normal blood pressure Blood Pressure Disposition: did not require urgent referral Discharge Plan Visit Data *Final* Discharge Date/Time: 09/20/18 12:19 Chief Complaint: Abdominal Pain Stated Complaint: ABDOMINAL PAIN ED Provider: Bert Cash Discharge Problem: Acute appendicitis Patient Disposition: Still a Patient Discharge Instructions Interventions: ED Discharge Assessment Last Done: 09/20/18 12:19 Discharge Problem: Acute appendicitis Qualifiers: Acute appendicitis type: with localized peritonitis Appendicitis gangrene presence: without gangrene Appendicitis perforation presence: without per foration Appendicitis abscess presence: without abscess Qualified Code(s): K35.30 - Acute appendicitis with localized peritonitis, without perforation or gangrene The scribe's documentation has been prepared under my direction and personally reviewed by me in its entirety. I confirm that the note above accurately reflects all work, treatment, procedures, and medical decision making performed by me.
[2018-09-20] MEDS ORDERED: MEPERIDINE HCL 25 MG/ML CARP IV PRN (15:39)
--- NOTE | 2018-09-20 16:31 | Anesthesiology Progress Note ---
Date of Service September 20, 2018 Anesthesia Post Procedure Vital Signs Vital Signs: Temp Pulse Pulse Pulse Resp BP BP 09/20/18 16:15 60 15 119/64 09/20/18 16:09 37.0 C 09/20/18 16:05 66 17 116/69 09/20/18 15:55 70 17 129/74 09/20/18 15:45 86 20 135/77 09/20/18 15:35 85 20 133/82 09/20/18 15:28 36.2 C L 98 H 20 139/81 09/20/18 12:44 36.6 C 64 18 114/76 09/20/18 12:00 60 14 108/64 09/20/18 11:30 70 22 108/65 09/20/18 11:04 68 16 109/80 09/20/18 10:31 71 20 121/81 09/20/18 09:25 75 18 120/80 09/20/18 08:09 65 18 106/70 09/20/18 07:42 09/20/18 06:59 36.5 C 63 18 117/77 Pulse Ox 09/20/18 16:15 96 09/20/18 16:09 09/20/18 16:05 96 09/20/18 15:55 94 09/20/18 15:45 95 09/20/18 15:35 94 09/20/18 15:28 99 09/20/18 12:44 96 09/20/18 12:00 97 09/20/18 11:30 97 09/20/18 11:04 98 09/20/18 10:31 99 09/20/18 09:25 96 09/20/18 08:09 99 09/20/18 07:42 95 09/20/18 06:59 99 Pain Intensity Right Abdomen: Pain Intensity: 0 Transfer of Care Handoff Completed per policy Notes Mental Status: alert / awake / arousable Patient Amnestic to Procedure: Yes Nausea / Vomiting: adequately controlled Pain: adequately controlled Airway Patency, RR, SpO2: stable & adequate BP & HR: stable & adequate Hydration State: stable & adequate Anesthetic Complications: no major complications apparent and Pt Satisfied with anesthetic care Notes: The patient has a dry throat but is otherwise doing well.
[2018-09-20] MEDS ORDERED: IBUPROFEN 600 MG TAB PO PRN (16:54)
[2018-09-20] MEDS ORDERED: OXYCODONE/ACETAMINOPHEN 5mg/325mg TAB PO PRN ×2 (16:54)
[2018-09-20] MEDS ORDERED: ACETAMINOPHEN 325 MG TAB PO PRN (16:54)
[2018-09-20] MEDS ORDERED: HYDROmorphone INJ 0.5 MG/0.5 ML SYR IV PRN ×2 (16:54)
--- NOTE | 2018-09-21 11:09 | Surgery Progress Note ---
Date of Service September 21, 2018 Assessment & Plan (1) Acute appendicitis: POD #1 laparoscopic appendectomy Meckel's diverticulectomy, doing well, tolerating diet. Discharge to home Follow-up in 2 weeks No antibiotic Activity restrictions and wound care instructions reviewed Return precautions given Present on Admission?: Yes Subjective 37-year-old male POD #1 laparoscopic appendectomy with lysis of adhesions and Meckel's diverticulectomy. Overall doing well, tolerated breakfast, pain from prior to surgery is improved. Physical Exam Constitutional: WD/WN, vitals as above Gastrointestinal (Abdomen): Abdomen soft, probably tender to palpation. Incisions with Dermabond, healing well, no evidence of infection or hernia. Results & Data Vital Signs (Past 12 Hours) Vital Signs Temp Pulse Pulse Pulse Pulse Resp BP 09/21/18 10:48 37.0 C 95 H 61 90 62 17 104/67 09/21/18 07:34 37.0 C 95 H 17 104/67 09/21/18 03:15 37.1 C 90 14 136/80 09/20/18 23:42 36.8 C 78 14 128/72 Pulse Ox 09/21/18 10:48 94 09/21/18 07:34 94 09/21/18 03:15 94 09/20/18 23:42 95 (1) Acute appendicitis Acute appendicitis type: with localized peritonitis Appendicitis abscess presence: without abscess Appendicitis gangrene presence: without gangrene Appendicitis perforation presence: without perforation Qualified Code(s): K35.30 - Acute appendicitis with localized peritonitis, without perforation or gangrene
--- NOTE | 2018-09-23 16:19 | Discharge Summary ---
Date of Service September 23, 2018 Admission HPI Per Admitting Provider 37 y/o male with RLQ pain began yesterday and increasing overnight. Went to work this morning, left to come to the ED. No N/V, no fevers or chills. Had lap romel, HH repair about a year ago. Principal Diagnosis 1. Acute appendicitis 2. Meckel's diverticulum Discharge Exam Gastrointestinal (Abdomen) Inspection/Auscultation: + abdominal surgical incision (clean, dry); abdomen not distended Percussion/Palpation: abdomen soft Discharge Data Allergies Allergy/AdvReac Type Severity Reaction Status Date / Time No Known Allergies Allergy Unverified 09/20/18 07:17 Consultations 09/20/18 08:39 ED Decision to Admit Stat Procedures Performed Operation Date: 09/20/18 09:50 Actual Procedures p Laparoscopic Appendectomy, lysis of adhesions, resection of Meckel's diverticulum(Not Applicable) - Dariusz García DO, FACS Ordered Studies 09/20/18 07:26 CT abd pelvis wo con Stat Hospital Course (1) Acute appendicitis: 37 y/o male presented to ED with complaint RLQ pain. CT was read as acute appendicitis, WBC was normal. He was taken to the OR for laparoscopic appendectomy. Appendix was mildly inflamed, a mildly inflamed Meckel's diverticulum was also identified and resected. He was transferred to the surgical floor for overnight observation. The next morning he was tolerating diet and oral analgesics. He was stable for discharge. Total Time Total Time Spent Total Time Spent (In Minutes): 15 Discharge Plan Discharge Items Patient Disposition: Home - Self-Care Reason For Visit: ABDOMINAL PAIN, APPENDICITIS Discharge Diagnosis: Laparoscopic appendectomy Discharge Goals: Decrease discomfort Activity: Per 'Additional Instructions' section Lifting: No more than 10 pounds Bathing: No limitations Driving/Machine Use: Resume 3 days after discharge Non-emergency contact: Surgeon Call non-emergency contact if: you have any medication questions, your pain is not controlled, you have a fever, your temperature is above 101.5 and your wound has increased redness Follow-up/Referrals: Dariusz García DO, FACS [Physician] - (Call to make an appt for approx 2 weeks) Griselda Peter MD [Primary Care Provider] - Diet: Regular Addtl Provider Instructions: Prescriptions: New oxycodone-acetaminophen [Percocet] 5-325 mg tablet 1 - 2 tab PO Q4H PRN (Reason: pain) Qty: 15 RF: 0 Continued ibuprofen 200 mg Tablet 600 mg PO QID PRN (Reason: Pain) RF: 0 Stand-Alone Forms: Call Back Authorization, [facility], [facility], Work/School Release (Inpt) Discharge Orders: Discharge Order (Routine); Ordered 09/21/18 Ordered By: Rabia Tavares Admission Data Admit Date/Time: 09/20/18 15:36 Attending Provider: Dariusz García Admit Provider: Dariusz García Primary Care Provider: Griselda Peter Other Providers: Dariusz García Service: Surgical Services Other Interventions: Discharge Summary Assessment (RN) Last Done: 09/21/18 10:48 DC Date/Time DO NOT enter until pt leaves facility: 09/21/18 11:23
== END 2018-09-21 11:23 | disposition home or self-care (01) ==
LOC: ED 06:53 → 3N 12:19 → ASU 12:19

== ENCOUNTER 2020-07-21 07:19 | Inpatient (IN) ==
[2020-07-21] MEDS ORDERED: SODIUM CHLORIDE 0.9% 1000ML 2,000 ML IV ONE (07:47)
[2020-07-21] MEDS ORDERED: ACETAMINOPHEN 1,000 MG/100 ML VIAL IV STA (07:52)
--- NOTE | 2020-07-21 08:10 | XRay Report ---
XR chest 1V portable HISTORY: 39 years-old Male Chest Pain acute atypical chest pain COMPARISON: Chest CT 05/06/2018, acute abdominal series radiographs 04/26/2018 TECHNIQUE: Portable AP view of the chest FINDINGS: Cardiomediastinal and hilar silhouettes are within normal limits. No pneumothorax, pleural effusion, airspace consolidation or overt pulmonary edema. Bones of the chest appear grossly intact. IMPRESSION: No acute process. ACT 112: Negative or not required by law. The above report was generated using voice recognition software. It may contain grammatical, syntax o r spelling errors. Electronically signed by: Yash Dior M.D. 07/21/2020 8:09 AM
[2020-07-21 08:50] LABS: Basophils # (auto) 0.02 K/uL (0-0.2); Basophils % (auto) 0.4 %; Eosinophils # (auto) 0.17 K/uL (0-0.5); Eosinophils % (auto) 3.5 %; Hematocrit (blood only) 43.5 % (42-52); Hemoglobin 15.8 g/dL (14.0-18.0); Immature Granulocytes # (auto) 0.01 K/uL (0.00-0.02); Immature Granulocytes % (auto) 0.2 %; Lymphocytes # (auto) 1.72 K/uL (1.2-3.4); Lymphocytes % (auto) 35.8 %; Mean Corpuscular Hemoglobin 30.5 pg (25-34); Mean Corpuscular Hgb Conc 36.3 g/dL (32-36); Mean Platelet Volume 10.2 fL (7.4-10.4); Monocytes % (auto) 6.2 %; Neutrophils # (auto) 2.59 K/uL (1.4-6.5); Neutrophils % (auto) 53.9 %; Platelet Count 188 K/uL (130-400); RDW Standard Deviation 36.8 fL (36.4-46.3); Red Blood Count 5.18 M/uL (4.7-6.1); White Blood Count 4.81 K/uL (4.8-10.8)
[2020-07-21 09:08] LABS: Alanine Aminotransferase 35 U/L (12-78); Albumin Level 3.9 gm/dl (3.4-5.0); Aspartate Aminotransferase 13 U/L (15-37); BUN Creatinine Ratio 14.7 (10-20); Bilirubin Direct < 0.1 mg/dl (0-0.2); Blood Urea Nitrogen 15 mg/dl (7-18); Calcium 9.2 mg/dl (8.5-10.1); Carbon Dioxide 26 mmol/L (21-32); Chloride 110 mmol/L (98-107); Creatinine Clr Calc Pharmacy 110.8 ml/min; Est GFR (African American) 105.1; Est GFR (Non-African American) 90.7; Glucose 90 mg/dl (70-99); Lipase 166 U/L (73-393); Magnesium 1.9 mg/dl (1.8-2.4); Potassium 4.2 mmol/L (3.5-5.1); Sodium 140 mmol/L (136-145)
[2020-07-21 09:17] LABS: Albumin Globulin Ratio 1.2 (0.9-2); Alkaline Phosphatase 72 U/L (45-117); Bilirubin,Total 0.9 mg/dl (0.2-1); Globulin 3.3 gm/dl (2.5-4.0); Phosphorus 3.1 mg/dl (2.5-4.9); Total Protein 7.2 gm/dl (6.4-8.2); Troponin I < 0.015 ng/ml (0-0.045)
[2020-07-21] MEDS ORDERED: OPTIRAY 320 125ml IV ONE (09:26)
--- NOTE | 2020-07-21 09:44 | CT Scan Report ---
UNENHANCED CT OF THE BRAIN; CT ANGIOGRAM OF THE BRAIN; CT ANGIOGRAM OF THE NECK CLINICAL HISTORY: Headache and dizziness. COMPARISON STUDY: No priors. TECHNIQUE: Unenhanced axial CT scan of the brain is performed. Subsequently, following the IV adminis tration of 120 of [address] 320, CT angiogram of the head and neck was performed from the aortic arch t o the vertex. Images are reviewed in the axial, sagittal, and coronal planes. 3-D MIPS images are cre ated and assessed. IV contrast was administered without complication. All measurements were calculate d based on NASCET criteria. A dose lowering technique was utilized adhering to the principles of ALA RA. CT DOSE: 1187.38 mGy.cm FINDINGS: Brain parenchyma: The brain parenchyma is normal in appearance. There is no hemorrhage, mass effect, or evidence of acute territorial ischemia by CT criteria. There is no evidence of enhancing mass lesi on on the angiogram phase images. The ventricles, sulci, and cisterns are normal in configuration. Gr ay-white matter differentiation is preserved. No extra-axial fluid collection is seen. Thoracic aorta: Visualized portions of the thoracic aorta are normal in caliber. The aortic arch demo nstrates standard 3-vessel anatomy. Right carotid arterial system: The right common carotid artery is widely patent, as are the right int ernal and external carotid arteries. There is mild tortuosity of the mid internal carotid artery. Left carotid arterial system: The left common carotid artery is widely patent, as are the left internet security specialist al and external carotid arteries. Vertebral arteries: The vertebral arteries are widely patent bilaterally and codominant. Subclavian arteries: Widely patent bilaterally. Intracranial vasculature: The internal carotid arteries are patent at the skull base, as are the ante rior and middle cerebral arteries bilaterally. The vertebrobasilar system and posterior cerebral sol johanna are widely patent. The vertebral arteries are codominant. There is no aneurysm, high-grade steno sis, or focal vessel cut off seen throughout the intracranial circulation. Jugular veins: Patent bilaterally. Dural sinuses: Patent. Lung apices: Partially visualized upper lobe lung parenchyma appears clear. Soft tissues: The visualized pharyngeal soft tissues are normal in appearance noting angiographic pha se technique. The oropharyngeal airway appears widely patent. The salivary and thyroid glands are nor mal in appearance. No cervical lymphadenopathy is seen. Skeletal structures: The calvarium appears intact. The cervical spine is within normal limits. No lyt ic or blastic lesion is seen. Orbits: The bony orbits are intact. Orbital contents are normal as visualized. Sinuses and mastoids: The paranasal sinuses are clear. The mastoid air cells are well pneumatized. IMPRESSION: 1 There is no hemorrhage, mass effect, or evidence of acute territorial ischemia by CT criteria. 2. Unremarkable CT angiogram of the brain. 3. Unremarkable CT angiogram of the neck. ACT 112: Negative or not required by law. Electronically signed by: Richard Varma M.D. 07/21/2020 9:42 AM
[2020-07-21 09:58] LABS: Lyme Ab IgG w/WB Rflx Negative (Negative); Lyme Ab IgM w/WB Rflx Negative (Negative)
[2020-07-21] MEDS ORDERED: AMIODARONE / D5W 360 MG/200 ML BAG IV ONE (10:47)
[2020-07-21] MEDS ORDERED: 0.2 MICRON FILTER SET 1 EA IV ONE (10:47)
[2020-07-21] MEDS ORDERED: AMIODARONE / D5W 150 MG/100 ML BAG IV STA (10:47)
[2020-07-21] MEDS ORDERED: AMIODARONE IV BOLUS & DRIP IV STA (10:47)
[2020-07-21] MEDS ORDERED: STAT IV Infusion **Titration per Protocol STA (10:47)
--- NOTE | 2020-07-21 11:00 | History & Physical Report ---
Date of Service July 21, 2020 Assessment & Plan (1) Nonsustained ventricular tachycardia: Start IV amiodarone drip as likely having sustained ventricular tachycardia episodes as outpatient. TTE Consult cardiology (2) Episodic lightheadedness: Suspect secondary to sustained VT episodes as above. (3) GERD (gastroesophageal reflux disease): Maalox as needed (4) Obesity: Admission and Anticipated Discharge Date Admission Date: July 21 2020 History of Present Illness Chief Complaint: Presyncope Primary Care Provider: Margaret Echeverria MD Devin Morrow is a 39-year-old male who presents to the ER due to episodic dizziness without syncope. He reports being healthy up until the last month when he is experiencing occasional lightheadedness. He has been getting more frequent. He does report having problems with insomnia which is improved over the last week with improvement of his symptoms. However today approximately 9:30 AM he felt his head pounding and had to lie down with severe dizziness while walking. He took his blood pressure and the cough reported him having an irregular heartbeat therefore decided to come to the ER. Associated shortness of breath during episodes. He denies any chest pain, orthopnea, PND, palpitations or claudication. He does note feeling overly tired lately. While in the emergency room he had an episode of nonsustained ventricular tachycardia lasting approximately 12 seconds. He felt no dizziness during this time but was more short of breath and this is mild compared to the episodes he has had. He was started on IV amiodarone and referred to medicine for admission ongoing management of nonsustained ventricular tachycardia with presyncope. Allergies Allergy/AdvReac Type Severity Reaction Status Date / Time No Known Allergies Allergy Unverified 07/21/20 08:22 Home Medications Medication Instructions Recorded Confirmed Type No Known Home Medications 07/21/20 07/21/20 History Past Med/Surg History Surgical History History of inguinal hernia repair History of laparoscopic cholecystectomy History of repair of hiatal hernia History of vasectomy Family History Grandfather (Paternal) Alcoholic cirrhosis Grandfather (Maternal) Murmur Diabetes Father Prostate cancer Grandmother (Maternal) Alzheimer disease Sister Systemic lupus erythematosus Denies family history of Ovarian cancer Myocardial infarction Breast cancer Colorectal cancer Social History Smoking Status: Never smoker Second Hand Exposure: No; Hx Alcohol Use: Yes Alcohol type: beer Hx Substance Use: No Preferred Language: Micronesian Communication Ability: Effective Visual Impairment: No Limitations Soa Integration Developer Required: No Beliefs That Will Affect Care: None marital status: Current Living Situation: Family current occupational status: employed current occupation: [employer] Other Information That Helps Us Care for You: No Feels Safe at Home: Yes Dental Care, Regularly: Yes Seatbelt Use: always Assistive Devices: None Review of Systems Review of Systems: All systems reviewed & are unremarkable except as noted in HPI & below Physical Exam Constitutional: well developed and well nourished; no acute distress Eyes: + anicteric sclerae; normal pupil size ENMT: external ear and nose normal, oropharynx normal Neck: trachea midline, no thyromegaly Respiratory: normal respiratory effort, lungs clear to auscultation Cardiovascular: RRR, no murmur, no edema Gastrointestinal (Abdomen): normal bowel sounds, soft, nontender, no hepatosplenomegaly Musculoskeletal: no cyanosis or clubbing, extremities motor strength 5/5 Skin: no rashes, warm and dry Neurologic: moves all extremities and awake; not confused Psychiatric: A+Ox3, euthymic affect Results & Data Results & Data ([facility]) Vital Signs (Past 12 Hours) Vital Signs Temp Pulse Pulse Resp BP BP Pulse Ox 07/21/20 10:31 68 16 99 07/21/20 10:30 69 16 94/54 L 96 07/21/20 10:01 96 H 24 95 07/21/20 10:00 68 17 109/71 97 07/21/20 09:56 68 14 113/75 99 07/21/20 09:34 73 22 100 07/21/20 09:01 68 16 97 07/21/20 09:00 72 16 110/71 97 07/21/20 08:57 73 16 116/74 97 07/21/20 08:36 98 07/21/20 08:31 70 17 07/21/20 08:30 71 17 116/74 07/21/20 08:01 73 21 96 07/21/20 08:00 71 15 103/73 97 07/21/20 07:47 73 20 96 07/21/20 07:34 73 20 117/74 97 07/21/20 07:25 36.3 C L 79 20 114/77 97 Medications Administered ER medications given: IV amiodarone bolus and drip Magnesium sulfate 2 g IV ECG Rate (beats per minute): 65 Rhythm: normal sinus Findings: no acute ischemic change Comparison ECG Date: from (August 21, 2015) Change: no significant change Code Status & VTE Plan Code Status Full VTE Prophylaxis Plan VTE Prophylaxis will be ordered: No Reason for no VTE drug order: Treatment not indicated Reason for no VTE mechanical prophylaxis: Treatment not indicated PG Care Time/CCT Total # of Minutes Spent Total Time Spent with Patient: Total time spent is greater than 50% in coordination of care (as documented) at patient's floor/unit and/or counseling patient: Coding Level of Care Code 49615 Initial Inpt Care Lvl 2 Diagnoses Nonsustained ventricular tachycardia I47.2 Episodic lightheadedness R42 GERD (gastroesophageal reflux disease) K21.9 Obesity E66.9
--- NOTE | 2020-07-21 12:29 | XCELERA ---
[id number]
[2020-07-21 13:16] LABS: Influenza A virus by PCR Negative (Neg); Influenza B virus by PCR Negative (Neg); RSV by PCR Negative (Neg); SARS CoV2 RNA(COVID-19) InHosp NEGATIVE (Negative)
[2020-07-21] MEDS: MAGNESIUM SULFATE / D5W 1 GM/100 ML BAG IV SCH ×2 (13:38→14:11)
[2020-07-21] MEDS ORDERED: ACETAMINOPHEN 325 MG TAB PO PRN (14:31)
[2020-07-21] MEDS ORDERED: ALUMINUM/MAGNESIUM SUSP 30 ML UDC PO PRN (14:31)
[2020-07-21] MEDS ORDERED: POLYETHYLENE (MIRALAX) 17 GM PACK PO PRN (14:31)
--- NOTE | 2020-07-21 14:47 | Cardiology Consultation ---
Date of Consultation July 21, 2020 Assessment & Plan (1) Nonsustained ventricular tachycardia: (2) Leg pain: (3) Near syncope: ASSESSMENT/PLAN: 1. Nonsustained ventricular tachycardia: Monomorphic. Would like to capture VT or PVCs on an ECG to determine potential location from which this originates. If RV OT tachycardia, would likely be able to treat with beta-jackson. Could also consider ablation if necessary. Stress echo tomorrow. Stop amiodarone drip. Diagnosis discussed with him. Consider electrophysiology consultation tomorrow. 2. Leg pain: Lower extremity Doppler will be ordered to evaluate for DVT. 3. Near syncope: Likely due to nonsustained ventricular tachycardia however during the witnessed episode today in the ER, he had no lightheadedness/near syncope but rather dyspnea. Check orthostatics. 4. Disposition: Cardiology will continue to follow. Patient care communicated with Dr. Wynn of the primary hospitalist service. Thank you for allowing me to participate in the care of your patient. Please call for any other questions or concerns. Sincerely, Jaden Vargas M.D. History of Present Illness Reason for Consultation: VT Requesting Physician: Devin Wynn MD Attending Physician: Devin Wynn MD History of Present Illness Mr. Morrow is a very pleasant 39-year-old gentleman with no known significant past medical history who was admitted on 07/21/2020 for ventricular tachycardia. He was seen in the emergency department after being admitted by the hospitalist service. He stated that for the past month or so, he has noted some lightheadedness that would transiently occur. He first noted it while sitting and eating. He would feel palpitations in his chest and then experience lightheadedness or near-syncope. Symptoms typically resolve within a minute. Symptoms over time have become more frequent, more severe, and longer in duration. Over the weekend, he had several episodes and then felt tired, sleeping most of Sunday. Yesterday, he had mild brief lightheadedness and then after work while sitting, had more profound episodes. He checked his blood pressure after an episode and it was normal at 110/60s and he reports his pulse being 59 but that his blood pressure cuff indicated irregular heartbeat. While in the emergency department, he used the restroom and it was noted on the monitor that he had nonsustained ventricular tachycardia of 23 beats and 18 beats. He denies feeling lightheaded but did have dyspnea during these episodes. He was placed on amiodarone drip as per hospitalist service. He had not had any recurrent episodes since then based on telemetry review. He does have PVCs and the PVCs appear to have the same morphology as his monomorphic ventricular tachycardia. He denies chest pain, syncope, edema, or bleeding. He did have some right lower leg pain and warm feeling a few days ago but this has since subsided. A few months ago, he was preparing to hunting in [place] and lost 20 lb by exercising and eating a healthier diet. He was hiking up and down the steep [place] and [place] and was able to do so without chest discomfort, palpitations, or shortness of breath. He also otherwise lives an active lifestyle. Review of systems: As above. Review of systems otherwise negative/unremarkable. Family history: Paternal uncle with NM in his 60s to 70s. Sister with Lisa's. Father with tachy-meir syndrome. Social history: Denies tobacco or drug abuse. Rare alcohol. Lives at home with his and 3 children. His , Kesha, works at [employer] in patient access. He works for the [employer]. His was present at the bedside. Allergies Allergy/AdvReac Type Severity Reaction Status Date / Time No Known Allergies Allergy Unverified 07/21/20 08:22 Home Medications Medication Instructions Recorded Confirmed Type No Known Home Medications 07/21/20 07/21/20 History Patient History Surgical History History of inguinal hernia repair History of laparoscopic cholecystectomy History of repair of hiatal hernia History of vasectomy Family History Grandfather (Paternal) Alcoholic cirrhosis Grandfather (Maternal) Murmur Diabetes Father Prostate cancer Grandmother (Maternal) Alzheimer disease Sister Systemic lupus erythematosus Denies family history of Ovarian cancer Myocardial infarction Breast cancer Colorectal cancer Social History Smoking Status: Never smoker Second Hand Exposure: No; Hx Alcohol Use: Yes Alcohol type: beer Hx Substance Use: No Preferred Language: Macedonian Communication Ability: Effective Visual Impairment: No Limitations Rail Signal Mechanic Required: No Beliefs That Will Affect Care: None marital status: Current Living Situation: Family current occupational status: employed current occupation: [employer] Other Information That Helps Us Care for You: No Feels Safe at Home: Yes Dental Care, Regularly: Yes Seatbelt Use: always Assistive Devices: None Physical Exam Physical Exam: Gen.: No acute distress. Alert and oriented. HEENT: Anicteric sclera. Neck: No JVD. No bruits. Normal carotid upstrokes bilaterally. Cardiac: PMI was nondisplaced. No ventricular heave. Regular. Normal S1-S2. No murmurs, rubs, or gallops. Pulmonary: Clear to auscultation bilaterally without wheezes, rales, or rhonchi. Abdomen: Soft, nontender, nondistended, with normoactive bowel sounds. No bruits noted. Extremities: 2+ radial pulses bilaterally. 2+ posterior tibialis pulses bilaterally. No edema or cyanosis. No palpable cords. Psychiatric: Affect appears appropriate. Results & Data ([facility]) Vital Signs (Past 12 Hours) Vital Signs Temp Pulse Pulse Resp BP BP Pulse Ox 07/21/20 13:30 77 15 115/75 96 07/21/20 13:00 78 19 113/86 96 07/21/20 12:30 72 18 116/72 96 07/21/20 12:00 68 22 115/83 98 07/21/20 11:30 70 16 100/66 97 07/21/20 11:00 74 21 120/82 97 07/21/20 10:31 68 16 99 07/21/20 10:30 69 16 94/54 L 96 07/21/20 10:01 96 H 24 95 07/21/20 10:00 68 17 109/71 97 07/21/20 09:56 68 14 113/75 99 07/21/20 09:34 73 22 100 07/21/20 09:01 68 16 97 07/21/20 09:00 72 16 110/71 97 07/21/20 08:57 73 16 116/74 97 07/21/20 08:36 98 07/21/20 08:31 70 17 07/21/20 08:30 71 17 116/74 07/21/20 08:01 73 21 96 07/21/20 08:00 71 15 103/73 97 07/21/20 07:47 73 20 96 07/21/20 07:34 73 20 117/74 97 07/21/20 07:25 36.3 C L 79 20 114/77 97 Laboratory Results Laboratory Results - last 24 hr 07/21/20 07/21/20 07/21/20 08:36 08:36 08:36 WBC 4.81 RBC 5.18 Hgb 15.8 Hct 43.5 MCV 84.0 MCH 30.5 MCHC 36.3 H RDW Std Deviation 36.8 RDW Coeff of Mine 12.0 Plt Count 188 MPV 10.2 Immature Gran % (Auto) 0.2 Neut % (Auto) 53.9 Lymph % (Auto) 35.8 Hardeman % (Auto) 6.2 Eos % (Auto) 3.5 Baso % (Auto) 0.4 Neut # (Auto) 2.59 Lymph # (Auto) 1.72 Hardeman # (Auto) 0.30 Eos # (Auto) 0.17 Baso # (Auto) 0.02 Immature Gran # (Auto) 0.01 PT Cancelled INR Cancelled APTT PTT Ratio Sodium 140 Potassium 4.2 Chloride 110 H Carbon Dioxide 26 Anion Gap 5.0 BUN 15 Creatinine 1.04 Est Cr Clr Drug Dosing 110.8 Est GFR ( Amer) 105.1 Est GFR (Non-Af Amer) 90.7 BUN/Creatinine Ratio 14.7 Glucose 90 Calcium 9.2 Phosphorus 3.1 Magnesium 1.9 Total Bilirubin 0.9 Direct Bilirubin < 0.1 AST 13 L ALT 35 Alkaline Phosphatase 72 Troponin I < 0.015 Total Protein 7.2 Albumin 3.9 Globulin 3.3 Albumin/Globulin Ratio 1.2 Lipase 166 TSH 1.500 Lyme Disease IgG Ab Lyme Disease IgM Ab COVID-19 Eval Order SARS-CoV-2 (PCR) Influenza Type A (PCR) Influenza Type B (PCR) RSV (RT-PCR) SARS-CoV-2, RNA, NAAT 07/21/20 07/21/20 07/21/20 08:36 09:08 09:08 WBC RBC Hgb Hct MCV MCH MCHC RDW Std Deviation RDW Coeff of Mine Plt Count MPV Immature Gran % (Auto) Neut % (Auto) Lymph % (Auto) Hardeman % (Auto) Eos % (Auto) Baso % (Auto) Neut # (Auto) Lymph # (Auto) Hardeman # (Auto) Eos # (Auto) Baso # (Auto) Immature Gran # (Auto) PT INR APTT PTT Ratio Sodium Potassium Chloride Carbon Dioxide Anion Gap BUN Creatinine Est Cr Clr Drug Dosing Est GFR ( Amer) Est GFR (Non-Af Amer) BUN/Creatinine Ratio Glucose Calcium Phosphorus Magnesium Total Bilirubin Direct Bilirubin AST ALT Alkaline Phosphatase Troponin I Total Protein Albumin Globulin Albumin/Globulin Ratio Lipase TSH Lyme Disease IgG Ab Negative Lyme Disease IgM Ab Negative COVID-19 Eval Order Covid19 [facility] SARS-CoV-2 (PCR) Influenza Type A (PCR) Influenza Type B (PCR) RSV (RT-PCR) SARS-CoV-2, RNA, NAAT NEGATIVE 07/21/20 07/21/20 07/21/20 09:41 10:53 10:53 WBC RBC Hgb Hct MCV MCH MCHC RDW Std Deviation RDW Coeff of Mine Plt Count MPV Immature Gran % (Auto) Neut % (Auto) Lymph % (Auto) Hardeman % (Auto) Eos % (Auto) Baso % (Auto) Neut # (Auto) Lymph # (Auto) Hardeman # (Auto) Eos # (Auto) Baso # (Auto) Immature Gran # (Auto) PT Cancelled INR Cancelled APTT Cancelled PTT Ratio Cancelled Sodium Potassium Chloride Carbon Dioxide Anion Gap BUN Creatinine Est Cr Clr Drug Dosing Est GFR ( Amer) Est GFR (Non-Af Amer) BUN/Creatinine Ratio Glucose Calcium Phosphorus Magnesium Total Bilirubin Direct Bilirubin AST ALT Alkaline Phosphatase Troponin I Total Protein Albumin Globulin Albumin/Globulin Ratio Lipase TSH Lyme Disease IgG Ab Lyme Disease IgM Ab COVID-19 Eval Order [facility]Flu[facility]sv at [facility] SARS-CoV-2 (PCR) NEGATIVE Influenza Type A (PCR) Negative Influenza Type B (PCR) Negative RSV (RT-PCR) Negative SARS-CoV-2, RNA, NAAT Diagnostic Findings Telemetry personally reviewed: Nonsustained ventricular tachycardia of 23 and 18 beats. PVCs with same morphology as the monomorphic VT. Predominately sinus rhythm. ECG personally reviewed: ECG 07/21/2020: Normal sinus rhythm 65 beats per minute. Normal ECG. Echo 07/21/2020 personally reviewed: Normal LV size, wall motion, systolic function. EF 55-60%. No LVH. No significant diastolic dysfunction. No significant valvular abnormalities. Normal RVSP. Chest x-ray 07/21/2020: No acute process per Radiology. Neck CTA 07/21/2020: Unremarkable CTA of the brain and neck per Radiology. Medications Administered Current Inpatient Medications Acetaminophen (Acetaminophen 325 Mg Tab) 650 mg PO Q4H PRN PRN Reason: Pain or Fever Stop: 08/20/20 14:30 Al Hydrox/Mg Hydrox/Simethicone (Aluminum/Magnesium Susp 30 Ml Udc) 15 ml PO Q4H PRN PRN Reason: Dyspepsia Stop: 08/20/20 14:30 Metoprolol Tartrate (Metoprolol Tartrate 25 Mg Tab) 25 mg PO BID ELIZABETH Stop: 08/20/20 14:14 Polyethylene Glycol (Polyethylene (Miralax) 17 Gm Pack) 17 gm PO DAILY PRN PRN Reason: Constipation Stop: 08/20/20 14:30 PG Care Time/CCT Total # of Minutes Spent Total Time Spent with Patient: Total time spent is greater than 50% in coordina tion of care (as documented) at patient's floor/unit and/or counseling patient: Coding Level of Care Code 78790 Inpt Consult Level 4 Diagnoses Nonsustained ventricular tachycardia I47.2 Leg pain M79.606 Near syncope R55
[2020-07-21] MEDS: METOPROLOL TARTRATE 25 MG TAB PO SCH ×2 (15:54→23:02)
--- NOTE | 2020-07-21 16:30 | Emergency Department Note ---
Impression & Plan Nonsustained ventricular tachycardia, Episodic lightheadedness, Low magnesium level ED Provider Note NAME: GONZALO RYDER AGE: 39 SEX: M ARRIVES VIA: Walk-In INFORMANT: Patient, ED PROVIDER(S): Amando Roberts MD CHIEF COMPLAINT: Intermittent palpitations, headache, dizziness PLAN: Disposition: Admit MEDICAL DECISION MAKING: The patient is a pleasant 39-year-old gentleman with a past medical history of acid reflux who presents emergency department for evaluation of ongoing symptoms of intermittent palpitations, dizziness, headache, fatigue that is been ongoing for the past several weeks with episode that occurred last night and into this morning and prior to arrival. The patient did follow-up with his PCP approximately a week ago for the symptoms and outpatient blood work/testing was ordered however the patient admits that he did not get to follow-up to have this test performed. However his symptoms were worse last night and today and so now presents to the emergency department accompanied by his for evaluation. Of note, the patient reports feeling symptoms last night and did check his blood pressure which was normal. He also reports his heart rate was not elevated, 60s, but he did note that the blood pressure cuff monitor did have an indicator light suggesting a possible irregular heart rhythm. Additionally, the patient's reports attempting to feel the patient's pulse and noticed that it was irregular with what seemed like "skipped beats". Heart rhythm. Otherwise he denies any fevers, chills, cough, congestion, GI or symptoms. On arrival the patient is fatigued appearing but no acute distress, afebrile with stable vital signs. He appears clinically dry. Exam is otherwise unremark able. EKG did not show acute ischemia. Chest x-ray negative for acute cardiopulmonary process. WBC, H/H and platelets within normal limits. Chemistry without metabolic acidosis. Magnesium 1.9 and repletion was provided to bring above 2. Troponin negative/undetectable. Lipase not elevated. TSH within normal limits. Lyme screen was negative. COVID-19 PCR negative. Influenza and RSV PCR also negative. CT of the head and CTA of the head and neck negative for ICH, ischemia or severe narrowing or occlusion of large vessels. Review of the patient's telemetry did note the patient had periodic episodes of PVCs and doublets and several episodes of PVCs and triplets, meeting criteria for NSVT. I did meet with the patient and reviewed his results at the bedside and given his telemetry findings he did agree with recommendation for inpatient admission for further monitoring. Of note, shortly following this discussion the patient did get up to go to the restroom and upon return was feeling a return of his palpitations and was noted to have a more prolonged episode of NSVT of approxima tely 10 seconds with associated symptoms. Case was d/w ALLISON Clement hospitalist who will evaluate the patient for admission. We agreed to proceed with amiodarone bolus and drip. Triage Nursing notes reviewed and agree them. Prior medical records reviewed Vital Signs: reviewed and remarkable for no significant abnormalities Differential diagnosis: Premature contractions, electrolyte abnormality, cardiac dysrhythmia, thyroid dysfunction, pulmonary embolism, infection, gastrointestinal, as well as other pathologies. ER treatment provided: See below. Diagnostics interpreted by me: ECG: Normal sinus rhythm, 65 bpm, no ectopy, no overt ST elevation or depression, QTC 401, QRS 88. Cardiac Monitoring: An order for continuous cardiac monitoring was placed and demonstrated normal sinus rhythm, 65 bpm, intermittent doublet PVCs with several episodes of triplet PVCs (i.e. NSVT) Laboratory studies: See below Imaging studies: See below Consultation(s): Case was d/w ALLISON Clement hospitalist who will evaluate the patient for admission. HPI: The patient is a pleasant 39-year-old gentleman with a past medical history of acid reflux who presents emergency department for evaluation of ongoing symptoms of intermittent palpitations, dizziness, headache, fatigue that is been ongoing for the past several weeks with episode that occurred last night and into this morning and prior to arrival. The patient did follow-up with his PCP approximately a week ago for the symptoms and outpatient blood work/testing was ordered however the patient admits that he did not get to follow-up to have this test performed. However his symptoms were worse last night and today and so now presents to the emergency department accompanied by his for evaluation. Of note, the patient reports feeling symptoms last night and did check his blood pressure which was normal. He also reports his heart rate was not elevated, 60s, but he did note that the blood pressure cuff monitor did have an indicator light suggesting a possible irregular heart rhythm. Additionally, the patient's reports attempting to feel the patient's pulse and noticed that it was irregular with what seemed like "skipped beats". Heart rhythm. Otherwise he denies any fevers, chills, cough, congestion, GI or symptoms. ROS: See above HPI for pertinent positives & negatives. A total of 10 systems reviewed and were otherwise negative. PAST MEDICAL HISTORY:See Below PAST SURGICAL HISTORY:See Below FAMILY HISTORY:See Below SOCIAL HISTORY:See Below HOME MEDICATIONS:See Below ALLERGIES:See Below VITALS:See Below PHYSICAL EXAMINATION: GENERAL: Awake, alert, fatigued-appearing, in no distress HENT: Normocephalic, atraumatic. Oropharynx with dry mucous membranes and otherwise unremarkable. EYES: Normal conjunctiva. Sclera non-icteric. NECK: Supple. No nuchal rigidity. FROM. No JVD. RESPIRATORY: Clear to auscultation. CARDIAC: Regular rate, normal rhythm. Extremities warm and well perfused. Pulses equal. ABDOMEN: Soft, non-distended. No tenderness to palpation. No rebound or guarding. No masses. RECTAL: Deferred. MUSCULOSKELETAL: Chest examination reveals no tenderness. The back is symmetric al on inspection without obvious abnormality. There is no CVA tenderness to palpation. No joint edema. LOWER EXTREMITIES: Calves are equal size bilaterally and non-tender. No edema. No discoloration. NEURO: Normal sensorium. No sensory or motor deficits noted. 5/5 strength and SILT x 4 extremities. Cerebellar function intact including [id number], alternating palms, [id number]. SKIN: No rash or jaundice noted. ED COURSE: Critical Care: I have personally spent greater than 35 minutes of critical care time in the direct management of this patient. This includes bedside care, interpretation of diagnostic studies, and testing, discussion with consultants, patient, and family members, and other required patient management activities. This 35 minutes is in excess of all separately billable procedures. Amando Roberts MD Past Med/Surg History Surgical History History of inguinal hernia repair History of laparoscopic cholecystectomy History of repair of hiatal hernia History of vasectomy Family History Grandfather (Paternal) Alcoholic cirrhosis Grandfather (Maternal) Murmur Diabetes Father Prostate cancer Grandmother (Maternal) Alzheimer disease Sister Systemic lupus erythematosus Denies family history of Ovarian cancer Myocardial infarction Breast cancer Colorectal cancer Social History Smoking Status: Never smoker Second Hand Exposure: No; Hx Alcohol Use: Yes Alcohol type: beer Hx Substance Use: No Preferred Language: Slovak Communication Ability: Effective Visual Impairment: No Limitations Supervisor Pigment Making Required: No Beliefs That Will Affect Care: None marital status: Current Living Situation: Family current occupational status: employed current occupation: [employer] Other Information That Helps Us Care for You: No Feels Safe at Home: Yes Dental Care, Regularly: Yes Seatbelt Use: always Assistive Devices: None Allergies Allergies Allergy/AdvReac Type Severity Reaction Status Date / Time No Known Allergies Allergy Unverified 07/21/20 08:22 Home Meds Home Medications Medication Instructions Recorded Confirmed No Known Home Medications 07/21/20 07/21/20 Results & Data (ED) Vital Signs Vital Signs - 24 hr 07/21/20 07:25 07/21/20 07:34 07/21/20 07:47 Temperature 36.3 C L Temperature Source Skin Pulse Rate 79 73 73 Pulse Rate [Apical] Pulse Rate from SpO2 Sensor 74 75 Pulse Rhythm [Apical] Pulse Strength [Apical] Respiratory Rate 20 20 20 Respiratory Effort / Characteristics Non-Labored Spontaneous Respiratory Depth Normal Respiratory Pattern Regular Blood Pressure 114/77 117/74 Blood Pressure [Left Arm] Blood Pressure Mean 89 88 Blood Pressure Mean [Left Arm] Blood Pressure Position [Left Arm] Pulse Oximetry 97 97 96 Oxygen Delivery Method Room Air Sepsis Recent Fever Within 48 Hours No Sepsis New/Unexplained Change in Mental Status N/A Sepsis Action Taken by Nursing No Action Required 07/21/20 08:00 07/21/20 08:01 07/21/20 08:30 Temperature Temperature Source Pulse Rate 71 73 71 Pulse Rate [Apical] Pulse Rate from SpO2 Sensor 72 74 Pulse Rhythm [Apical] Pulse Strength [Apical] Respiratory Rate 15 21 17 Respiratory Effort / Characteristics Respiratory Depth Respiratory Pattern Blood Pressure 103/73 116/74 Blood Pressure [Left Arm] Blood Pressure Mean 83 88 Blood Pressure Mean [Left Arm] Blood Pressure Position [Left Arm] Pulse Oximetry 97 96 Oxygen Delivery Method Sepsis Recent Fever Within 48 Hours Sepsis New/Unexplained Change in Mental Status Sepsis Action Taken by Nursing 07/21/20 08:31 07/21/20 08:36 07/21/20 08:57 Temperature Temperature Source Pulse Rate 70 Pulse Rate [Apical] 73 Pulse Rate from SpO2 Sensor Pulse Rhythm [Apical] Regular Pulse Strength [Apical] Normal Respiratory Rate 17 16 Respiratory Effort / Characteristics Non-Labored Spontaneous Respiratory Depth Normal Respiratory Pattern Regular Blood Pressure Blood Pressure [Left Arm] 116/74 Blood Pressure Mean Blood Pressure Mean [Left Arm] 88 Blood Pressure Position [Left Arm] Lying Pulse Oximetry 98 97 Oxygen Delivery Method Room Air Room Air Sepsis Recent Fever Within 48 Hours Sepsis New/Unexplained Change in Mental Status Sepsis Action Taken by Nursing 07/21/20 09:00 07/21/20 09:01 07/21/20 09:34 Temperature Temperature Source Pulse Rate 72 68 73 Pulse Rate [Apical] Pulse Rate from SpO2 Sensor 79 69 71 Pulse Rhythm [Apical] Pulse Strength [Apical] Respiratory Rate 16 16 22 Respiratory Effort / Characteristics Respiratory Depth Respiratory Pattern Blood Pressure 110/71 Blood Pressure [Left Arm] Blood Pressure Mean 84 Blood Pressure Mean [Left Arm] Blood Pressure Position [Left Arm] Pulse Oximetry 97 97 100 Oxygen Delivery Method Sepsis Recent Fever Within 48 Hours Sepsis New/Unexplained Change in Mental Status Sepsis Action Taken by Nursing 07/21/20 09:56 07/21/20 10:00 07/21/20 10:01 Temperature Temperature Source Pulse Rate 68 68 96 H Pulse Rate [Apical] Pulse Rate from SpO2 Sensor 68 68 89 Pulse Rhythm [Apical] Pulse Strength [Apical] Respiratory Rate 14 17 24 Respiratory Effort / Characteristics Respiratory Depth Respiratory Pattern Blood Pressure 113/75 109/71 Blood Pressure [Left Arm] Blood Pressure Mean 87 83 Blood Pressure Mean [Left Arm] Blood Pressure Position [Left Arm] Pulse Oximetry 99 97 95 Oxygen Delivery Method Sepsis Recent Fever Within 48 Hours Sepsis New/Unexplained Change in Mental Status Sepsis Action Taken by Nursing 07/21/20 10:30 07/21/20 10:31 07/21/20 11:00 Temperature Temperature Source Pulse Rate 69 68 74 Pulse Rate [Apical] Pulse Rate from SpO2 Sensor 68 68 75 Pulse Rhythm [Apical] Pulse Strength [Apical] Respiratory Rate 16 16 21 Respiratory Effort / Characteristics Respiratory Depth Respiratory Pattern Blood Pressure 94/54 L 120/82 Blood Pressure [Left Arm] Blood Pressure Mean 67 94 Blood Pressure Mean [Left Arm] Blood Pressure Position [Left Arm] Pulse Oximetry 96 99 97 Oxygen Delivery Method Sepsis Recent Fever Within 48 Hours Sepsis New/Unexplained Change in Mental Status Sepsis Action Taken by Nursing Laboratory Data Attestation: I reviewed the patient's lab results. Result diagrams: 07/21/20 08:36 07/21/20 08:36 Lab Results 07/21/20 07/21/20 07/21/20 Range/Units 08:36 08:36 08:36 WBC 4.81 (4.8-10.8) K/uL RBC 5.18 (4.7-6.1) M/uL Hgb 15.8 (14.0-18.0) g/dL Hct 43.5 (42-52) % MCV 84.0 (80-100) fL MCH 30.5 (25-34) pg MCHC 36.3 H (32-36) g/dL RDW Std Deviation 36.8 (36.4-46.3) fL RDW Coeff of Mine 12.0 (11.5-14.5) % Plt Count 188 (130-400) K/uL MPV 10.2 (7.4-10.4) fL Immature Gran % (Auto) 0.2 % Neut % (Auto) 53.9 % Lymph % (Auto) 35.8 % [place] % (Auto) 6.2 % Eos % (Auto) 3.5 % Baso % (Auto) 0.4 % Neut # (Auto) 2.59 (1.4-6.5) K/uL Lymph # (Auto) 1.72 (1.2-3.4) K/uL [place] # (Auto) 0.30 (0.11-0.59) K/uL Eos # (Auto) 0.17 (0-0.5) K/uL Baso # (Auto) 0.02 (0-0.2) K/uL Immature Gran # (Auto) 0.01 (0.00-0.02) K/uL PT Cancelled INR Cancelled APTT PTT Ratio Sodium 140 (136-145) mmol/L Potassium 4.2 (3.5-5.1) mmol/L Chloride 110 H (98-107) mmol/L Carbon Dioxide 26 (21-32) mmol/L Anion Gap 5.0 (3-11) BUN 15 (7-18) mg/dl Creatinine 1.04 (0.6-1.4) mg/dl Est Cr Clr Drug Dosing 110.8 ml/min Est GFR ( Amer) 105.1 Est GFR (Non-Af Amer) 90.7 BUN/Creatinine Ratio 14.7 (10-20) Glucose 90 (70-99) mg/dl Calcium 9.2 (8.5-10.1) mg/dl Phosphorus 3.1 (2.5-4.9) mg/dl Magnesium 1.9 (1.8-2.4) mg/dl Total Bilirubin 0.9 (0.2-1) mg/dl Direct Bilirubin < 0.1 (0-0.2) mg/dl AST 13 L (15-37) U/L ALT 35 (12-78) U/L Alkaline Phosphatase 72 (45-117) U/L Troponin I < 0.015 (0-0.045) ng/ml Total Protein 7.2 (6.4-8.2) gm/dl Albumin 3.9 (3.4-5.0) gm/dl Globulin 3.3 (2.5-4.0) gm/dl Albumin/Globulin Ratio 1.2 (0.9-2) Lipase 166 (73-393) U/L TSH 1.500 (0.300-4.500) uIu/ml Lyme Disease IgG Ab (Negative) Lyme Disease IgM Ab (Negative) COVID-19 Eval Order SARS-CoV-2 (PCR) (Negative) Influenza Type A (PCR) (Neg) Influenza Type B (PCR) (Neg) RSV (RT-PCR) (Neg) SARS-CoV-2, RNA, NAAT (NEGATIVE) 07/21/20 07/21/20 07/21/20 Range/Units 08:36 09:08 09:08 WBC (4.8-10.8) K/uL RBC (4.7-6.1) M/uL Hgb (14.0-18.0) g/dL Hct (42-52) % MCV (80-100) fL MCH (25-34) pg MCHC (32-36) g/dL RDW Std Deviation (36.4-46.3) fL RDW Coeff of Mine (11.5-14.5) % Plt Count (130-400) K/uL MPV (7.4-10.4) fL Immature Gran % (Auto) % Neut % (Auto) % Lymph % (Auto) % [place] % (Auto) % Eos % (Auto) % Baso % (Auto) % Neut # (Auto) (1.4-6.5) K/uL Lymph # (Auto) (1.2-3.4) K/uL [place] # (Auto) (0.11-0.59) K/uL Eos # (Auto) (0-0.5) K/uL Baso # (Auto) (0-0.2) K/uL Immature Gran # (Auto) (0.00-0.02) K/uL PT INR APTT PTT Ratio Sodium (136-145) mmol/L Potassium (3.5-5.1) mmol/L Chloride (98-107) mmol/L Carbon Dioxide (21-32) mmol/L Anion Gap (3-11) BUN (7-18) mg/dl Creatinine (0.6-1.4) mg/dl Est Cr Clr Drug Dosing ml/min Est GFR ( Amer) Est GFR (Non-Af Amer) BUN/Creatinine Ratio (10-20) Glucose (70-99) mg/dl Calcium (8.5-10.1) mg/dl Phosphorus (2.5-4.9) mg/dl Magnesium (1.8-2.4) mg/dl Total Bilirubin (0.2-1) mg/dl Direct Bilirubin (0-0.2) mg/dl AST (15-37) U/L ALT (12-78) U/L Alkaline Phosphatase (45-117) U/L Troponin I (0-0.045) ng/ml Total Protein (6.4-8.2) gm/dl Albumin (3.4-5.0) gm/dl Globulin (2.5-4.0) gm/dl Albumin/Globulin Ratio (0.9-2) Lipase (73-393) U/L TSH (0.300-4.500) uIu/ml Lyme Disease IgG Ab Negative (Negative) Lyme Disease IgM Ab Negative (Negative) [facility]) (Negative) Influenza Type A (PCR) (Neg) Influenza Type B (PCR) (Neg) RSV (RT-PCR) (Neg) SARS-CoV-2, RNA, NAAT NEGATIVE (NEGATIVE) 07/21/20 07/21/20 07/21/20 Range/Units 09:41 10:53 10:53 WBC (4.8-10.8) K/uL RBC (4.7-6.1) M/uL Hgb (14.0-18.0) g/dL Hct (42-52) % MCV (80-100) fL MCH (25-34) pg MCHC (32-36) g/dL RDW Std Deviation (36.4-46.3) fL RDW Coeff of Mine (11.5-14.5) % Plt Count (130-400) K/uL MPV (7.4-10.4) fL Immature Gran % (Auto) % Neut % (Auto) % Lymph % (Auto) % [place] % (Auto) % Eos % (Auto) % Baso % (Auto) % Neut # (Auto) (1.4-6.5) K/uL Lymph # (Auto) (1.2-3.4) K/uL [place] # (Auto) (0.11-0.59) K/uL Eos # (Auto) (0-0.5) K/uL Baso # (Auto) (0-0.2) K/uL Immature Gran # (Auto) (0.00-0.02) K/uL PT Cancelled INR Cancelled APTT Cancelled PTT Ratio Cancelled Sodium (136-145) mmol/L Potassium (3.5-5.1) mmol/L Chloride (98-107) mmol/L Carbon Dioxide (21-32) mmol/L Anion Gap (3-11) BUN (7-18) mg/dl Creatinine (0.6-1.4) mg/dl Est Cr Clr Drug Dosing ml/min Est GFR ( Amer) Est GFR (Non-Af Amer) BUN/Creatinine Ratio (10-20) Glucose (70-99) mg/dl Calcium (8.5-10.1) mg/dl Phosphorus (2.5-4.9) mg/dl Magnesium (1.8-2.4) mg/dl Total Bilirubin (0.2-1) mg/dl Direct Bilirubin (0-0.2) mg/dl AST (15-37) U/L ALT (12-78) U/L Alkaline Phosphatase (45-117) U/L Troponin I (0-0.045) ng/ml Total Protein (6.4-8.2) gm/dl Albumin (3.4-5.0) gm/dl Globulin (2.5-4.0) gm/dl Albumin/Globulin Ratio (0.9-2) Lipase (73-393) U/L TSH (0.300-4.500) uIu/ml Lyme Disease IgG Ab (Negative) Lyme Disease IgM Ab (Negative) COVID-19 Eval Order [facility] at [facility] SARS-CoV-2 (PCR) NEGATIVE (Negative) Influenza Type A (PCR) Negative (Neg) Influenza Type B (PCR) Negative (Neg) RSV (RT-PCR) Negative (Neg) SARS-CoV-2, RNA, NAAT (NEGATIVE) Administered Medications Metoprolol Tartrate (Metoprolol Tartrate 25 Mg Tab) 25 mg PO BID ELIZABETH Stop: 08/20/20 14:14 Last Admin: 07/21/20 15:54 Dose: 25 mg Documented by: [id number] Discontinued Medications Amiodarone HCl (Amiodarone Iv Bolus & Drip) 1 ea IV NOW STA; Protocol Stop: 07/21/20 10:48 Last Admin: 07/21/20 15:27 Dose: Not Given Documented by: [id number] Sodium Chloride (Nss 1000ml) 2,000 mls @ 999 mls/hr IV .Q2H1M ONE Stop: 07/21/20 09:47 Last Infusion: 07/21/20 10:44 Dose: 0 mls/hr Documented by: [id number] Admin: 07/21/20 08:54 Dose: 999 mls/hr Documented by: [id number] Acetaminophen (Ofirmev) 1,000 mg in 100 mls @ 400 mls/hr IV NOW STA Stop: 07/21/20 08:06 Last Infusion: 07/21/20 09:12 Dose: 0 mls/hr Documented by: [id number] Admin: 07/21/20 08:55 Dose: 400 mls/hr Documented by: [id number] Amiodarone HCl/Dextrose (Nexterone / D5w) 150 mg in 100 mls @ 600 mls/hr IV NOW STA Stop: 07/21/20 10:56 Last Infusion: 07/21/20 11:37 Dose: 0 mls/hr Documented by: [id number] Cosigned by: [id number] Admin: 07/21/20 11:13 Dose: 600 mls/hr Documented by: [id number] Cosigned by: [id number] Amiodarone HCl/Dextrose (Nexterone / D5w) 360 mg in 200 mls @ 33.333 mls/hr IV ONE ONE Stop: 07/21/20 16:46 Last Infusion: 07/21/20 14:30 Dose: 0 mls/hr Documented by: [id number] Cosigned by: [id number] Infusion: 07/21/20 14:11 Dose: 33.3 mls/hr Documented by: [id number] Cosigned by: [id number] Admin: 07/21/20 11:32 Dose: 33.3 mls/hr Documented by: [id number] Cosigned by: [id number] Magnesium Sulfate/Dextrose (Magnesium Sulfate / D5w) 1 gm in 100 mls @ 100 m ls/hr IV Q1H ELIZABETH Stop: 07/21/20 12:50 Last Infusion: 07/21/20 15:26 Dose: 0 mls/hr Documented by: [id number] Admin: 07/21/20 14:11 Dose: 100 mls/hr Documented by: [id number] Infusion: 07/21/20 14:10 Dose: 0 mls/hr Documented by: [id number] Admin: 07/21/20 13:38 Dose: 100 mls/hr Documented by: [id number] Ioversol (Optiray 320 125ml) 120 ml IV ONCE ONE Stop: 07/21/20 09:27 Last Admin: 07/21/20 09:29 Dose: 120 ml Documented by: [id number] Miscellaneous (Stat Iv Infusion Titration Per Protocol) 1 ea N/A NOW STA Stop: 07/21/20 10:48 Last Admin: 07/21/20 15:27 Dose: Not Given Documented by: [id number] Imaging Data Radiologist's Impression: Chest X-Ray 07/21/20 07:43 XR chest 1V portable HISTORY: 39 years-old Male Chest Pain acute atypical chest pain COMPARISON: Chest CT 05/06/2018, acute abdominal series radiographs 04/26/2018 TECHNIQUE: Portable AP view of the chest FINDINGS: Cardiomediastinal and hilar silhouettes are within normal limits. No pneumo thorax, pleural effusion, airspace consolidation or overt pulmonary edema. Bones of the chest appear grossly intact. IMPRESSION: No acute process. ACT 112: Negative or not required by law. The above report was generated using voice recognition software. It may contain grammatical, syntax or spelling errors. Electronically signed by: Yash Dior M.D. 07/21/2020 8:[address] 07/21/20 07:[address] OF THE BRAIN; CT ANGIOGRAM OF THE BRAIN; CT ANGIOGRAM OF THE NECK CLINICAL HISTORY: Headache and dizziness. COMPARISON STUDY: No priors. TECHNIQUE: Unenhanced axial CT scan of the brain is performed. Subsequently, following the IV administration of 120 of Optiray 320, CT angiogram of the head and neck was performed from the aortic arch to the vertex. Images are reviewed in the axial, sagittal, and coronal planes. 3-D MIPS images are created and assessed. IV contrast was administered without complication. All measurements were calculated based on NASCET criteria. A dose lowering technique was utilized adhering to the principles of ALARA. CT DOSE: 1187.38 mGy.cm FINDINGS: Brain parenchyma: The brain parenchyma is normal in appearance. There is no hemorrhage, mass effect, or evidence of acute territorial ischemia by CT criteria. There is no evidence of enhancing mass lesion on the angiogram phase images. The ventricles, sulci, and cisterns are normal in configuration. [place]- white matter differentiation is preserved. No extra-axial fluid collection is seen. Thoracic aorta: Visualized portions of the thoracic aorta are normal in caliber. The aortic arch demonstrates standard 3-vessel anatomy. Right carotid arterial system: The right common carotid artery is widely patent, as are the right internal and external carotid arteries. There is mild tortuos ity of the mid internal carotid artery. Left carotid arterial system: The left common carotid artery is widely patent, as are the left internal and external carotid arteries. Vertebral arteries: The vertebral arteries are widely patent bilaterally and codominant. Subclavian arteries: Widely patent bilaterally. Intracranial vasculature: The internal carotid arteries are patent at the skull base, as are the anterior and middle cerebral arteries bilaterally. The vertebrobasilar system and posterior cerebral arteries are widely patent. The vertebral arteries are codominant. There is no aneurysm, high-grade stenosis, or focal vessel cut off seen throughout the intracranial circulation. Jugular veins: Patent bilaterally. Dural sinuses: Patent. Lung apices: Partially visualized upper lobe lung parenchyma appears clear. Soft tissues: The visualized pharyngeal soft tissues are normal in appearance noting angiographic phase technique. The oropharyngeal airway appears widely patent. The salivary and thyroid glands are normal in appearance. No cervical lymphadenopathy is seen. Skeletal structures: The calvarium appears intact. The cervical spine is within normal limits. No lytic or blastic lesion is seen. Orbits: The bony orbits are intact. Orbital contents are normal as visualized. Sinuses and mastoids: The paranasal sinuses are clear. The mastoid air cells are well pneumatized. IMPRESSION: 1 There is no hemorrhage, mass effect, or evidence of acute territorial ischemia by CT criteria. 2. Unremarkable CT angiogram of the brain. 3. Unremarkable CT angiogram of the neck. ACT 112: Negative or not required by law. Electronically signed by: Richard Varma M.D. 07/21/2020 9:42 AM Head CTA 07/21/20 07:[address] OF THE BRAIN; CT ANGIOGRAM OF THE BRAIN; CT ANGIOGRAM OF THE NECK CLINICAL HISTORY: Headache and dizziness. COMPARISON STUDY: No priors. TECHNIQUE: Unenhanced axial CT scan of the brain is performed. Subsequently, f ollowing the IV administration of 120 of Optiray 320, CT angiogram of the head and neck was performed from the aortic arch to the vertex. Images are reviewed in the axial, sagittal, and coronal planes. 3-D MIPS images are created and assessed. IV contrast was administered without complication. All measurements were calculated based on NASCET criteria. A dose lowering technique was utilized adhering to the principles of ALARA. CT DOSE: 1187.38 mGy.cm FINDINGS: Brain parenchyma: The brain parenchyma is normal in appearance. There is no hemorrhage, mass effect, or evidence of acute territorial ischemia by CT criteria. There is no evidence of enhancing mass lesion on the angiogram phase images. The ventricles, sulci, and cisterns are normal in configuration. [place]- white matter differentiation is preserved. No extra-axial fluid collection is seen. Thoracic aorta: Visualized portions of the thoracic aorta are normal in caliber. The aortic arch demonstrates standard 3-vessel anatomy. Right carotid arterial system: The right common carotid artery is widely patent, as are the right internal and external carotid arteries. There is mild tortuosity of the mid internal carotid artery. Left carotid arterial system: The left common carotid artery is widely patent, as are the left internal and external carotid arteries. Vertebral arteries: The vertebral arteries are widely patent bilaterally and codominant. Subclavian arteries: Widely patent bilaterally. Intracranial vasculature: The internal carotid arteries are patent at the skull base, as are the anterior and middle cerebral arteries bilaterally. The vertebrobasilar system and posterior cerebral arteries are widely patent. The vertebral arteries are codominant. There is no aneurysm, high-grade stenosis, or focal vessel cut off seen throughout the intracranial circulation. Jugular veins: Patent bilaterally. Dural sinuses: Patent. Lung apices: Partially visualized upper lobe lung parenchyma appears clear. Soft tissues: The visualized pharyngeal soft tissues are normal in appearance noting angiographic phase technique. The oropharyngeal airway appears widely patent. The salivary and thyroid glands are normal in appearance. No cervical lymphadenopathy is seen. Skeletal structures: The calvarium appears intact. The cervical spine is within normal limits. No lytic or blastic lesion is seen. Orbits: The bony orbits are intact. Orbital contents are normal as visualized. Sinuses and mastoids: The paranasal sinuses are clear. The mastoid air cells are well pneumatized. IMPRESSION: 1 There is no hemorrhage, mass effect, or evidence of acute territorial ischemia by CT criteria. 2. Unremarkable CT angiogram of the brain. 3. Unremarkable CT angiogram of the neck. ACT 112: Negative or not required by law. Electronically signed by: Richard Varma M.D. 07/21/2020 9:42 AM Neck CTA 07/21/20 07:[address] OF THE BRAIN; CT ANGIOGRAM OF THE BRAIN; CT ANGIOGRAM OF THE NECK CLINICAL HISTORY: Headache and dizziness. COMPARISON STUDY: No priors. TECHNIQUE: Unenhanced axial CT scan of the brain is performed. Subsequently, following the IV administration of 120 of Optiray 320, CT angiogram of the head and neck was performed from the aortic arch to the vertex. Images are reviewed in the axial, sagittal, and coronal planes. 3-D MIPS images are created and assessed. IV contrast was administered without complication. All measurements were calculated based on NASCET criteria. A dose lowering technique was utilized adhering to the principles of ALARA. CT DOSE: 1187.38 mGy.cm FINDINGS: Brain parenchyma: The brain parenchyma is normal in appearance. There is no hemorrhage, mass effect, or evidence of acute territorial ischemia by CT criteria. There is no evidence of enhancing mass lesion on the angiogram phase images. The ventricles, sulci, and cisterns are normal in configuration. Chapin- white matter differentiation is preserved. No extra-axial fluid collection is seen. Thoracic aorta: Visualized portions of the thoracic aorta are normal in caliber. The aortic arch demonstrates standard 3-vessel anatomy. Right carotid arterial system: The right common carotid artery is widely patent, as are the right internal and external carotid arteries. There is mild tortuosity of the mid internal carotid artery. Left carotid arterial system: The left common carotid artery is widely patent, as are the left internal and external carotid arteries. Vertebral arteries: The vertebral arteries are widely patent bilaterally and codominant. Subclavian arteries: Widely patent bilaterally. Intracranial vasculature: The internal carotid arteries are patent at the skull base, as are the anterior and middle cerebral arteries bilaterally. The vertebrobasilar system and posterior cerebral arteries are widely patent. The vertebral arteries are codominant. There is no aneurysm, high-grade stenosis, or focal vessel cut off seen throughout the intracranial circulation. Jugular veins: Patent bilaterally. Dural sinuses: Patent. Lung apices: Partially visualized upper lobe lung parenchyma appears clear. Soft tissues: The visualized pharyngeal soft tissues are normal in appearance noting angiographic phase technique. The oropharyngeal airway appears widely patent. The salivary and thyroid glands are normal in appearance. No cervical lymphadenopathy is seen. Skeletal structures: The calvarium appears intact. The cervical spine is within normal limits. No lytic or blastic lesion is seen. Orbits: The bony orbits are intact. Orbital contents are normal as visualized. Sinuses and mastoids: The paranasal sinuses are clear. The mastoid air cells are well pneumatized. IMPRESSION: 1 There is no hemorrhage, mass effect, or evidence of acute territorial ischemia by CT criteria. 2. Unremarkable CT angiogram of the brain. 3. Unremarkable CT angiogram of the neck. ACT 112: Negative or not required by law. Electronically signed by: Richard Varma M.D. 07/21/2020 9:42 AM Discharge Plan Visit Data Chief Complaint: Arrhythmia/Palpitations Stated Complaint: Arrhythmia/Palpitations ED Provider: Amando Roberts Discharge Problem: Nonsustained ventricular tachycardia, Episodic lightheadedness, Low magnesium level Patient Disposition: Admitted As Inpatient Discharge Instructions Interventions: ED Discharge Assessment Last Done: 07/21/20 13:47
[2020-07-21] MEDS ORDERED: AMIODARONE / D5W 360 MG/200 ML BAG IV SCH (16:48)
[2020-07-21 17:16] LABS: Appearance Urine Clear (Clear); Bilirubin Urine Negative (Negative); Blood Urine Negative (Negative); Color Urine Yellow; Glucose Urine UA Negative (Negative); Ketones Urine Negative (Negative); Leukocyte Esterase Urine Negative (Negative); Nitrite Urine Negative (Negative); Protein Urine Negative (Negative); Urobilinogen Urine Negative (Negative)
--- NOTE | 2020-07-22 06:06 | Electrocardiogram Report ---
Test Reason : Blood Pressure : / mmHG Vent. Rate : 065 BPM Atrial Rate : 065 BPM P-R Int : 140 ms QRS Dur : 088 ms QT Int : 386 ms P-R-T Axes : 038 010 042 degrees QTc Int : 401 ms Normal sinus rhythm Normal ECG When compared with ECG of 21-AUG-2015 22:15, No significant change was found Confirmed by Micah Vargas ([id number]) on 07/22/2020 6:06:17 AM Referred By: REFERRED SELF Confirmed By:Micah Vargas
--- NOTE | 2020-07-22 07:15 | Ultrasound Report ---
RIGHT LOWER EXTREMITY VENOUS DOPPLER HISTORY: Right leg pain, rule out DVT COMPARISON STUDY: None. FINDINGS: There is normal compressibility, flow, and augmentation within the right lower extremity de ep venous system. IMPRESSION: No DVT within the right lower extremity ACT 112: Negative or not required by law. Electronically signed by: Nelson Howard M.D. 07/22/2020 7:14 AM
[2020-07-22 08:39] LABS: Hematocrit (blood only) 46.1 % (42-52); Hemoglobin 16.1 g/dL (14.0-18.0); Mean Corpuscular Hemoglobin 29.7 pg (25-34); Mean Corpuscular Hgb Conc 34.9 g/dL (32-36); Mean Corpuscular Volume 85.1 fL (80-100); Mean Platelet Volume 10.4 fL (7.4-10.4); Platelet Count 198 K/uL (130-400); RDW Standard Deviation 36.7 fL (36.4-46.3); Red Blood Count 5.42 M/uL (4.7-6.1)
[2020-07-22 08:42] LABS: BUN Creatinine Ratio 14.6 (10-20); Calcium 9.2 mg/dl (8.5-10.1); Creatinine Clr Calc Pharmacy 109.1 ml/min; Est GFR (African American) 103.9; Est GFR (Non-African American) 89.6; Magnesium 2.2 mg/dl (1.8-2.4); Potassium 3.9 mmol/L (3.5-5.1)
[2020-07-22] MEDS: METOPROLOL TARTRATE 25 MG TAB PO SCH (09:56)
--- NOTE | 2020-07-22 10:22 | XCELERA ---
[id number]
--- NOTE | 2020-07-22 10:32 | Cardiology Progress Note ---
Date of Service July 22, 2020 Assessment & Plan (1) Nonsustained ventricular tachycardia: (2) Leg pain: (3) Near syncope: ASSESSMENT/PLAN: 1. Nonsustained ventricular tachycardia: PVCs and VT had similar morphology while in the emergency department. 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 This typically responds well to beta-jackson and could potentially undergo ablation. He prefers invasive approach rather than taking medical therapy for prolonged periods of time. Electrophysiology consultation recommended. Discussed with Dr. Mary of electrophysiology who plans on seeing him today. 2. Leg pain: Resolved. Venous Doppler negative for DVT. 3. Near syncope: Likely related to ventricular tachycardia. Plan as above. 4. Disposition: Electrophysiology to see. Please call with any questions or concerns. Admission and Anticipated Discharge Date Admission Date: July 21, 2020 Subjective He feels well this morning. He denies chest pain, shortness of breath, dizziness, lightheadedness, palpitations, edema. He underwent exercise stress echo earlier this morning and did quite well. He had excellent exercise tolerance. No ventricular arrhythmia during exercise but did have frequent PVCs, often in a bigeminal pattern while exercising, which completely resolved during higher levels of exercise when his heart rate was greater than 130 beats per minute. PVCs returned in recovery. He tolerated beta-jackson overnight. Review of systems: As above. Physical Exam Physical Exam: Gen.: No acute distress. Alert and oriented. HEENT: Anicteric sclera. Neck: No JVD. Cardiac: Regular. Normal S1-S2. No murmurs, rubs, or gallops. Pulmonary: Clear to auscultation bilaterally without wheezes, rales, or rhonchi. Abdomen: Soft, nontender, nondistended, with normoactive bowel sounds. No bruits noted. Extremities: 2+ radial pulses bilaterally. 2+ posterior tibialis pulses bilaterally. No edema or cyanosis. Psychiatric: Affect appears appropriate. Results & Data ([facility]) Vital Signs (Past 12 Hours) Vital Signs Temp Pulse Pulse Resp BP BP Pulse Ox 07/22/20 08:37 60 15 103/62 96 07/22/20 08:00 36.8 C 59 L 15 103/62 95 07/22/20 07:00 57 L 12 07/22/20 06:00 56 L 20 07/22/20 05:36 60 19 107/53 L 96 07/22/20 05:00 36.6 C 56 L 54 L 10 L 107/57 L 95 07/22/20 04:00 59 L 14 07/22/20 03:00 63 14 07/22/20 02:00 58 L 15 07/22/20 01:00 60 16 07/22/20 00:00 57 L 2 L 07/21/20 23:40 54 L 07/21/20 23:00 36.8 C 76 68 20 107/60 98 07/21/20 22:57 60 16 107/60 98 Laboratory Results Laboratory Results - last 24 hr 07/21/20 07/21/20 07/21/20 10:53 10:53 14:20 WBC RBC Hgb Hct MCV MCH MCHC RDW Std Deviation RDW Coeff of Mine Plt Count MPV Sodium Potassium Chloride Carbon Dioxide Anion Gap BUN Creatinine Est Cr Clr Drug Dosing Est GFR ( Amer) Est GFR (Non-Af Amer) BUN/Creatinine Ratio Glucose Calcium Magnesium Urine Color Urine Appearance Urine pH Ur Specific [place] Urine Protein Urine Glucose (UA) Urine Ketones Urine Blood Urine Nitrite Urine Bilirubin Urine Urobilinogen Ur Leukocyte Esterase Nasal Screen MRSA (PCR) Negative COVID-19 Eval Order CovFluRsv at [facility] SARS-CoV-2 (PCR) NEGATIVE Influenza Type A (PCR) Negative Influenza Type B (PCR) Negative RSV (RT-PCR) Negative 07/21/20 07/22/20 07/22/20 Unknown 07:51 07:51 WBC 4.50 L RBC 5.42 Hgb 16.1 Hct 46.1 MCV 85.1 MCH 29.7 MCHC 34.9 RDW Std Deviation 36.7 RDW Coeff of Mine 12.0 Plt Count 198 MPV 10.4 Sodium 138 Potassium 3.9 Chloride 108 H Carbon Dioxide 26 Anion Gap 4.0 BUN 15 Creatinine 1.05 Est Cr Clr Drug Dosing 109.1 Est GFR ( Amer) 103.9 Est GFR (Non-Af Amer) 89.6 BUN/Creatinine Ratio 14.6 Glucose 76 Calcium 9.2 Magnesium 2.2 Urine Color Yellow Urine Appearance Clear Urine pH 7.0 Ur Specific [place] 1.020 Urine Protein Negative Urine Glucose (UA) Negative Urine Ketones Negative Urine Blood Negative Urine Nitrite Negative Urine Bilirubin Negative Urine Urobilinogen Negative Ur Leukocyte Esterase Negative Nasal Screen MRSA (PCR) COVID-19 Eval Order SARS-CoV-2 (PCR) Influenza Type A (PCR) Influenza Type B (PCR) RSV (RT-PCR) Diagnostic Findings Right lower extremity venous Doppler report reviewed from07/22/2020: No DVT. Stress echo 07/22/2020: Negative for ischemia on stress echo and ECG. Frequent PVCs as noted above in HPI. Medications Administered Current Inpatient Medications Acetaminophen (Acetaminophen 325 Mg Tab) 650 mg PO Q4H PRN PRN Reason: Pain or Fever Stop: 08/20/20 14:30 Al Hydrox/Mg Hydrox/Simethicone (Aluminum/Magnesium Susp 30 Ml Udc) 15 ml PO Q4H PRN PRN Reason: Dyspepsia Stop: 08/20/20 14:30 Metoprolol Tartrate (Metoprolol Tartrate 25 Mg Tab) 25 mg PO BID ELIZABETH Stop: 08/20/20 14:14 Last Admin: 07/22/20 09:56 Dose: 25 mg Documented by: Polyethylene Glycol (Polyethylene (Miralax) 17 Gm Pack) 17 gm PO DAILY PRN PRN Reason: Constipation Stop: 08/20/20 14:30 PG Care Time/CCT Total # of Minutes Spent Total Time Spent with Patient: Total time spent is greater than 50% in coordination of care (as documented) at patient's floor/unit and/or counseling patient: Coding Level of Care Code 37105 Subseq Hosp Care Lvl 3 Diagnoses Nonsustained ventricular tachycardia I47.2 Leg pain M79.606 Near syncope R55
--- NOTE | 2020-07-22 13:38 | Cardiology Consultation ---
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 There is a likely relationship between his episodes of VT and symptoms. However, we do not have a definite association as he did have some arrhythmia without symptoms. he has not been on telemetry while he has had symptoms. However, his description of the events would be consistent with nonsustained ventricular tachycardia. He appears to have a structurally normal heart. There is no evidence of right ventricular enlargement or an abnormal EKG more suggestive of ARVC. As such, this likely represents a benign form of ventricular tachycardia. The real risk to the patient involve symptoms or in the worst case scenario possibly syncope. Why this has become more problematic recently is unclear. It is unlikely to be related to some electrolyte disturbance. Traditionally this is more common with activity or shortly after discontinuing activity. His symptoms occur more commonly at rest. Review of his telemetry Reveals that the arrhythmia is almost non-existent when he is not active or sleeping. this is consistent with the presumed relationship repetitive monomorphic VT and higher adrenergic states. We discussed options for treatment. One option is medical therapy. He has been started on beta-blockade. I think propranolol would be the recommended be ta-jackson, but in his case this may have to significant antihypertensive affect. He does seem to be doing well with metoprolol and would seem reasonable to discharge him on metoprolol tartrate 25 mg twice daily. In the absence of worsening symptoms this would be a reasonable solution. Type 1 or type 3 antiarrhythmics would also be an option. However, the patient seems more interested in avoiding long-term medical therapy. He seems to have a greater interest in catheter based treatment. Generally speaking, ventricular tachycardia of this variety can reliably be eliminated with ablation. We discussed the risks of ablation and the potential need for 2 procedures depending on the exact origin of his VT. He wishes to discuss the options with his before making a decision. I think would be safe for him to be discharged on metoprolol as noted above. History of Present Illness Reason for Consultation: ventricular tachycardia Requesting Physician: Sam Attending Physician: Jean Nunn MD History of Present Illness the patient is a 31-year-old gentleman without a known history of cardiac disease who has been experiencing intermittent symptoms of dizziness for several weeks. Patient states that his symptoms are fairly transient in nature and initially were fairly infrequent. He has noticed an occasional palpitation which is also fleeting. Approximately 10 days ago he had more frequent and significant episodes of dizziness. These tend to occur without any specific activity or exertion. They can occur while standing or sitting. Again, they are fairly transient but do occasionally involve a sense of palpitation. He had a more severe episode approximately 2 days ago which resulted in presyncope. He did not actually lose consciousness. There is no associated chest pain. Based on the recurrent and more severe nature of his symptoms he presented for evaluation in the emergency room. Initial evaluation was unremarkable but after returning from the bathroom and being placed on telemetry, the patient was noted to have an episode of nonsustained VT. He was subsequently admitted for observation. In the hospital he had some additional episodes of nonsustained VT and periods of frequent ventricular ectopy. Curiously, he did not have symptoms associated with these events. The patient did undergo echocardiography as well as stress echocardiography. These tests were normal. No evidence of structural heart disease or ischemia. Patient is an otherwise active individual. He is accustomed routine activity without limitation or symptom. He denies any exertional dyspnea or chest discomfort. He cannot ever recall suffering an episode of syncope. Currently feeling well. Allergies Allergy/AdvReac Type Severity Reaction Status Date / Time No Known Allergies Allergy Unverified 07/21/20 08:22 Home Medications Medication Instructions Recorded Confirmed Type No Known Home Medications 07/21/20 07/21/20 History metoprolol tartrate 25 mg PO BID #60 tab 07/22/20 Rx Patient History Surgical History History of inguinal hernia repair History of laparoscopic cholecystectomy History of repair of hiatal hernia History of vasectomy Family History Grandfather (Paternal) Alcoholic cirrhosis Grandfather (Maternal) Murmur Diabetes Father Prostate cancer Grandmother (Maternal) Alzheimer disease Sister Systemic lupus erythematosus Denies family history of Ovarian cancer Myocardial infarction Breast cancer Colorectal cancer Social History Smoking Status: Never smoker Second Hand Exposure: No; Hx Alcohol Use: Yes Alcohol type: beer Hx Substance Use: No Preferred Language: [place] Island[place] Communication Ability: Effective Visual Impairment: No Limitations Dynamite Shooter Required: No Beliefs That Will Affect Care: None marital status: Current Living Situation: Family current occupational status: employed current occupation: [employer] Feels Safe at Home: Yes Dental Care, Regularly: Yes Seatbelt Use: always Assistive Devices: None Review of Systems Review of Systems: All systems reviewed & are unremarkable except as noted in HPI & below He does have gastrointestinal disturbances frequently. Physical Exam Physical Exam: The patient is alert and oriented. Mood and affect appeared normal. He answered all questions appropriately. HEENT: Pupils are equal and reactive to light and accommodation. Extraocular movements are intact. The sclerae are anicteric. Neuro: Cranial nerves intact ( Wearing mask) Neck: Patient's neck is supple. He has palpable carotid pulses bilaterally without bruits on auscultation. There is no evidence of jugular venous distention. The thyroid is not enlarged. Lungs: Clear to auscultation bilaterally. He has good air movement without use of accessory muscles. No rales wheezes or rhonchi. Cardiac: Heart demonstrates a regular rate and rhythm. Normal S1 and S2. No murmurs on examination. Pulses: The patient has palpable radial pulses bilaterally that are equal in intensity Extremities: There was no evidence of hypoperfusion. There is no cyanosis or clubbing. There is no edema. Skin: I did not appreciate any rashes on examination today. Results & Data ([facility]) Vital Signs (Past 12 Hours) Vital Signs Temp Pulse Pulse Resp BP BP Pulse Ox 07/22/20 09:00 36.8 C 62 20 115/67 97 07/22/20 08:37 60 15 103/62 96 07/22/20 08:00 36.8 C 59 L 15 103/62 95 07/22/20 07:00 57 L 12 07/22/20 06:00 56 L 20 07/22/20 05:36 60 19 107/53 L 96 07/22/20 05:00 36.6 C 56 L 54 L 10 L 107/57 L 95 07/22/20 04:00 59 L 14 07/22/20 03:00 63 14 07/22/20 02:00 58 L 15 Laboratory Results I reviewed the source image of his EKG dated 07/21/2020: Normal sinus rhythm. No pre-excitation. No Brugada pattern. Normal QT interval. I reviewed the report of his echocardiogram performed 07/21/2020: Normal. No significant valvular heart disease. normal LV systolic function wall motion I discussed his stress echocardiogram with Dr. Vargas. Patient was able to exercise for over 13 minutes. He had no symptoms. There was no evidence of inducible ischemia. Review of his EKG revealed some ventricular ectopy but no ventricular tachycardia. PG Care Time/CCT Total # of Minutes Spent Total Time Spent with Patient: Total time spent is greater than 50% in coordination of care (as documented) at patient's floor/unit and/or counseling patient: Coding Level of Care Code 79434 Office/OBS Consult Lvl 4 Diagnoses Ventricular tachycardia, monomorphic I47.2
--- NOTE | 2020-07-22 17:40 | Discharge Summary ---
Date of Service July 22, 2020 Admission HPI Per Admitting Provider Devin Morrow is a 39-year-old male who presents to the ER due to episodic dizziness without syncope. He reports being healthy up until the last month when he is experiencing occasional lightheadedness. He has been getting more frequent. He does report having problems with insomnia which is improved over the last week with improvement of his symptoms. However today approximately 9:30 AM he felt his head pounding and had to lie down with severe dizziness while walking. He took his blood pressure and the cough reported him having an irregular heartbeat therefore decided to come to the ER. Associated shortness of breath during episodes. He denies any chest pain, orthopnea, PND, palpitations or claudication. He does note feeling overly tired lately. While in the emergency room he had an episode of nonsustained ventricular tachycardia lasting approximately 12 seconds. He felt no dizziness during this time but was more short of breath and this is mild compared to the episodes he has had. He was started on IV amiodarone and referred to medicine for admission ongoing management of nonsustained ventricular tachycardia with presyncope. Principal Diagnosis Repetitive monomorphic ventricular tachycardia Discharge Exam Constitutional WD/WN, vitals as above Eyes EOM intact bilaterally; no conjunctival abnormality ENMT external ear and nose normal, oropharynx normal Neck trachea midline, no thyromegaly normal visual inspection Respiratory normal respiratory effort, lungs clear to auscultation no respiratory distress Cardiovascular RRR, no murmur, no edema Gastrointestinal (Abdomen) Inspection/Auscultation: abdomen normal to inspection; abdomen not distended Musculoskeletal no cyanosis or clubbing, extremities motor strength 5/5 Skin no rashes, warm and dry Neurologic moves all extremities and awake Psychiatric Orientation: alert, oriented to person and cooperative Discharge Data Allergies Allergy/AdvReac Type Severity Reaction Status Date / Time No Known Allergies Allergy Unverified 07/21/20 08:22 Consultations 07/21/20 10:50 ED Decision to Admit Stat 07/21/20 11:30 Consult Cardiology Routine 07/22/20 10:32 Consult Cardiac Electrophysiology Routine Ordered Studies 07/21/20 07:54 CT angio head w con Stat CT angio neck with con Stat CT head/brain wo con Stat 07/22/20 05:29 US venous doppler LE RT Routine Hospital Course (1) Nonsustained ventricular tachycardia: Seen by cardiology and EP. - Stress echo on 07/22 showed inducible PVCs and bigeminy under stress. Per EP, likely repetitive monomorphic ventricular tachycardia. - Benign heart rhythm. Will start beta-jackson (metoprolol) and follow up with EP to plan for likely ablation in the near future. (2) Episodic lightheadedness: Suspect secondary to sustained VT episodes as above. (3) GERD (gastroesophageal reflux disease): Maalox as needed (4) Obesity: Total Time Total Time Spent Total Time Spent (In Minutes): 35 Discharge Plan Discharge Items Patient Disposition: Home - Self-Care Reason For Visit: NSVT Discharge Diagnosis: Non-sustained ventricular tachycardia Activity: Resume your previous activity Non-emergency contact: Primary Care Provider and Clinical Research Nurse Call non-emergency contact if: your symptoms worsen Follow-up/Referrals: Reyes Mary MD [Physician] - (Please see Dr. Mary in 1-2 weeks.) Margaret Echeverria MD [Primary Care Provider] - Diet: Regular Addtl Attending Provider Instructions: Mr. Morrow, Amrit were admitted to the hospital for an abnormal heart rhythm. This stems from a small area in the heart that can get overactive and beat too soon. Luckily, this is very treatable with medications and a procedure that helps keep the area from causing premature beats. Dr. Mary (an energy conservation director) can help manage and hopefully eliminate this issue. Please take the new medication (metoprolol) twice per day as discussed with Dr. Mary. Please follow up with Dr. Mary in the clinic to help plan for the procedure that will help stop the heart rhythm from happening, if that is what you and your family decide to pursue. Pending Studies at Discharge: No Stand-Alone Forms: My [facility] [employer], Smoking Cessation Medications and DC Order Prescriptions: New metoprolol tartrate 25 mg Tablet 25 mg PO BID Qty: 60 RF: 0 No Action No Known Home Medications RF: 0 Discharge Orders: Discharge Order (Routine); Ordered 07/22/20 Ordered By: Jean Nunn Admission Data Admit Date/Time: 07/21/20 11:30 Attending Provider: Jean Nunn Admit Provider: Devin Wynn Primary Care Provider: Margaret Echeverria Other Providers: Micah Vargas ; Jean Nunn ; Reyes Mary Other Interventions: Discharge Summary Assessment (RN) Last Done: 07/22/20 15:15 Coding Level of Care Code D/C Day Management >30 mins Diagnoses Nonsustained ventricular tachycardia I47.2 Episodic lightheadedness R42 GERD (gastroesophageal reflux disease) K21.9 Obesity E66.9
== END 2020-07-22 15:33 | disposition home or self-care (01) | DRG 310 ==
LOC: ED 07:19 → SUATTDRO 11:30 → 1E 11:30